=== PATIENT | male | born 1930 | race Caucasian/White ===

== ENCOUNTER 2018-07-18 06:44 | Day surgery (SDC) | payer OTHER ==
--- NOTE | 2018-07-15 11:39 | RAD REPORT ---
EXAM DESCRIPTION: RAD - Chest Pa And Lat (2 Views) - 07/15/2018 11:31 am CLINICAL HISTORY: CAD Chest pain. COMPARISON: CHEST PA AND LAT 2 VIEW dated 10/02/2008; CHEST PA AND LAT 2 VIEW dated 02/07/2008; Outpt Chest Pa/Lat (2 Views) dated 01/25/2018 FINDINGS: The lungs are hyperexpanded with linear atelectasis in both lung bases. The heart is moder ately enlarged in size with changes of previous valve replacement. No displaced fractures. Aortic ath erosclerosis. IMPRESSION: COPD suspected with linear atelectasis in both lung bases.
[2018-07-15 12:23] LABS: Absolute Lymphocytes (CBC) 1.4 K/uL (0.7-4.9); Absolute Monocytes 0.8 K/uL (0.1-1.3); Basophils % 1.3 % (0-1.3); Eosinophils % 1.9 % (0-4.4); Hematocrit 42.6 % (39.6-49.0); Lymphocytes % 21.7 % (15.3-44.8); MCH 32.7 pg (27.0-35.0); MCV 94.9 fL (80-100); MPV 9.5 fL (7.6-11.3); Monocytes % 11.9 % (3.3-12.3); RBC Red Blood Cell Count 4.49 M/uL (4.33-5.43)
[2018-07-15 12:28] LABS: Protime INR 1.11
[2018-07-15 12:37] LABS: BUN Blood Urea Nitrogen 11 mg/dL (7-18); Bicarbonate 31 mmol/L (21-32); Glucose Level 90 mg/dL (74-106); Sodium Level 141 mmol/L (136-145)
--- NOTE | 2018-07-16 08:35 | EKG ---
Test Date: 2018-07-15 Test Time: 11:21:12 Director Of Income Tax: AUBREE MEASUREMENT RESULTS: Intervals: Rate: 65 VT: 180 QRSD: 98 QT: 452 QTc: 470 Ladd: P: 64 VT: 180 QRS: -12 T: 32 INTERPRETIVE STATEMENTS: Sinus rhythm with sinus arrhythmia Nonspecific T wave abnormality Prolonged QT Abnormal ECG Compared to ECG 12/26/2017 13:00:41 Sinus bradycardia no longer present Left-axis deviation no longer present Myocardial infarct finding no longer present Electronically Signed On 07-16-18 08:35:02 CDT by Dante Thomas
[2018-07-18] MEDS ORDERED: HEPA 1000U/500MLS 2,000 UNIT/1,000 ML BAG IV ONE (06:52)
[2018-07-18] MEDS ORDERED: NA CHLORIDE 0.9% 500 ML ONE (07:22)
[2018-07-18] MEDS ORDERED: NA CHLORIDE 0.9% 100 ML IV ONE (07:27)
[2018-07-18] MEDS ORDERED: ATROPINE SULF 1 MG/10 ML SYR IV ONE (07:27)
[2018-07-18] MEDS ORDERED: LIDOCAINE 1% MPF 2 ML AMPULE ONE (07:27)
[2018-07-18] MEDS ORDERED: NA CHLORIDE 0.9% 0 ML ONE (07:27)
[2018-07-18] MEDS ORDERED: FENTANYL CITR 100 MCG/2 ML ONE (07:45)
[2018-07-18] MEDS ORDERED: MIDAZOLAM HCL 2 MG/2 ML INJ ONE (07:45)
--- NOTE | 2018-07-18 19:58 | OP ---
Surgeon: Dante Thomas MD Procedures Performed: Right and left heart catheterization, coronary angiography, left ventricular a ngiography. Findings: The patient has moderate mitral regurgitation, normal ejection fraction, normal right hear t pressures, left ventricular end-diastolic pressure 11, pulmonary capillary wedge pressure 11, and t he RV pressure was 40/6, PA pressure 40/22. Ejection fraction 65%. Coronary arteries were normal an d the recommendation is for him to have a second mitral valve repair. His mitral valve was repaired in 1997 with a French ring. 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 Prepared and draped in usual sterile fashion. Right femoral approach was use d. Right femoral artery entered using an 18-gauge needle, modified Seldinger technique, 4-Gambian she ath. Right femoral vein; 18-gauge needle, modified Seldinger technique, 7-Gambian sheath. Right hear t cath was done with a [place]-Alisha catheter. Cardiac outputs were thermodilution. The left coronary w as angiogrammed with a JL-4, right coronary with a 3DRC, LV with an angled pigtail. At the end of procedure, an angiogram was done of the right femoral artery. Adequate anatomy was seen. The phil riotomy was closed with an Angio-Seal device, femoral vein with manual pressure. Estimated Blood Loss: 10 cc. Complications: From the procedure none. System Support Analyst: Evin Carpio. ADRIEN/ANA Voice ID: [id number] Report ID: [id number]
== END 2018-07-18 12:50 | disposition home or self-care (01) ==
LOC: CCL 06:44
PROVIDERS: ATTEND Internal Medicine
PROC: 4A023N8 Measurement of Cardiac Sampling and Pressure, Bilateral, Percutaneous Approach (ICD-10-PCS; principal; 2018-07-18)
PROC: B2111ZZ Fluoroscopy of Multiple Coronary Arteries using Low Osmolar Contrast (ICD-10-PCS; 2018-07-18)
PROC: B2151ZZ Fluoroscopy of Left Heart using Low Osmolar Contrast (ICD-10-PCS; 2018-07-18)
DX: I34.0 Nonrheumatic mitral (valve) insufficiency (principal); I10 Essential (primary) hypertension; I48.91 Unspecified atrial fibrillation; G47.30 Sleep apnea, unspecified; E78.5 Hyperlipidemia, unspecified; Z88.2 Allergy status to sulfonamides; Z88.8 Allergy status to other drugs, medicaments and biological substances; Z87.891 Personal history of nicotine dependence; Z82.49 Family history of ischemic heart disease and other diseases of the circulatory system
CPT/HCPCS: 36415; 71046; 80048; 85025; 85610; 85730; 93005; 93460; C1760; J2001; J2250; J3010; C1893; J0583

== ENCOUNTER 2018-08-26 07:49 | Inpatient (IN) | payer OTHER ==
--- OUTSIDE RECORDS SUMMARY | 2018-08-26 07:52 | XMS REPORT | Clinical Summary ---
:1930 Author Organization [facility] Address [address] [place] [address] Care Team Providers Name Role Phone Laurent Avitia MD Primary Care Provider Allergies Active Allergy Reactions Severity Noted Date Comments Sulfa (Sulfonamide Antibiotics) 07/26/2018 Current Medications Prescription Sig. Disp. Refills Start Date End Date Status valsartan (DIOVAN) 320 MG Take 320 mg by Active tablet mouth daily. amlodipine-benazepril Take 1 capsule by Active (LOTREL 5-10) 5-10 mg per mouth daily. capsule furosemide (LASIX) 20 mg Take 20 mg by mouth Active tablet 2 (two) times a day. ALPRAZolam (XANAX) 0.25 Take 0.25 mg by Active MG tablet mouth nightly as needed for anxiety. famotidine (PEPCID) 10 MG Take 10 mg by mouth Active tablet 2 (two) times a day. Active Problems Problem Noted Date Mitral regurgitation 07/26/2018 Hypertension 07/26/2018 Encounters Date Type Specialty Care Team Description 07/29/2018 Hospital Procedural Cardiology Lopez Argueta Non-rheumatic mitral Silvia Krishnamurthy MD regurgitation 07/29/2018 Ancillary Orders Cardiovascular Mariangel Baxter-tu mitral GONZALES Sewell regurgitation 07/26/2018 Office Visit Cardiovascular Lopez Argueta-rheumatic cain Krishnamurthy MD regurgitation (Primary Dx) after 08/25/2017 Family History Medical History Relation Name Comments Hypertension Brother Hypertension Father Stroke Father Heart attack Mother Heart disease Mother Hypertension Mother Hypertension Sister Relation Name Status Comments Brother Father Mother Sister Social History Tobacco Use Types Packs/Day Years Used Date Former Smoker Cigarettes Comments: Quit 40+ years ago Alcohol Use Drinks/Week oz/Week Comments Yes 7-10 Glasses of wine 4.2 - 6.0 1-2 glasses of red wine per day Sex Assigned at Date Recorded Not on file Last Filed Vital Signs Vital Sign Reading Time Taken Blood Pressure 151/66 07/29/2018 2:30 PM CDT Pulse 53 07/29/2018 2:30 PM CDT Temperature - - Respiratory Rate 18 07/29/2018 2:30 PM CDT Oxygen Saturation 95% 07/26/2018 2:35 PM CDT Inhaled Oxygen Concentration - - Weight 83.9 kg (185 lb) 07/29/2018 2:30 PM CDT Height 170.2 cm (5' 7") 07/29/2018 2:30 PM CDT Body Mass Index 28.98 07/29/2018 2:30 PM CDT Plan of Treatment Health Maintenance Due Date Last Done Comments SHINGRIX VACCINE (#1) 1982 ZOSTER VACCINE 1992 PNEUMOCOCCAL POLYSACCHARIDE VACCINE AGE 65 AND OVER 1997 PNEUMOCOCCAL-13 1997 INFLUENZA VACCINE 06/22/2018 Procedures Procedure Name Priority Date/Time Associated Diagnosis Comments CARDIAC MRI VALVE STAT 07/29/2018 4:43 Non-rheumatic mitral Results for this ASSESSMENT W PM CDT regurgitation procedure are in CONTRAST the results section. POC PANEL Routine 07/29/2018 2:45 Results for this PM CDT procedure are in the results section. ESTIMATED GFR Routine 07/29/2018 2:45 Results for this PM CDT procedure are in the results section. after 08/25/2017 Results Cardiac mri valve assessment w contrast (07/29/2018 4:43 PM) Narrative Performed At [facility] CMR Report Name: LILIAN URIAS Debra :1930 Scan Date: 2018-07-29 15:05:18 Electronically signed by Matheus Ling M.D. 17:55:52 VITALS HEIGHT/WEIGHT HEIGHT:67.00 in 170.18 cm WEIGHT:184.99 lbs 83.91 kgs BSA/BP BSA:1.96 m^2 SYSTOLIC BP:151 mmHg DIASTOLIC BP:66 mmHg HEART RATE/RHYTHM BASELINE HR:53 BPM HEART RHYTHM:Frequent Ectopy SUMMARY A. STATUS POST MITRAL VALVE REPAIR WITH MILD-MODERATE MITRAL REGURGITATION. <assuming mild AI; technically difficult due to ectopy> B.MILDLY DILATED LV WITH MILD SYSTOLIC DYSFUNCTION. C. SUBENDOCARDIAL AND TRANSMURAL SCARRED SEGMENTS IN THE LCX TERRITORY. LEFT VENTRICLE: LV wall thickness is normal. LV cavity is mildly enlarged. LV systolic function is mildly decreased globally. Quantitative LVEF 46%. There is no LV mass/thrombus. VIABILITY: LV infarct/scar size is 9%. CAD pattern scar in the LCx territory consistent with a prior myocardial infarct. The LAD and RCA territories are viable. RIGHT VENTRICLE: RV wall thickness is normal. RV cavity size is normal. RV systolic function is mildly decreased globally. Quantitative RVEF 41%. There is no RV mass/thrombus. VENTRICULAR SEPTUM: The ventricular septum is intact. ATRIAL SEPTUM: There is lipomatous hypertrophy of the interatrial septum. LEFT ATRIUM: LA is severely enlarged. There is no LA mass/thrombus. RIGHT ATRIUM: RA is moderately enlarged. There is no RA mass/thrombus. PERICARDIUM: Pericardium is normal. There is no pericardial effusion. There is prominent epicardial adipose tissue. PLEURAL EFFUSION: There is no pleural effusion. AORTIC VALVE: Aortic valve is trileaflet. There is mild aortic regurgitation. Aortic regurgitant volume 20ml. There is no aortic stenosis. MITRAL VALVE: Mitral valve has a prosthetic ring. There is mild-moderate mitral regurgitation. Mitral regurgitant volume 20ml. Mitral regurgitant fraction 25%. There is an indeterminate mitral stenosis. The regurgitant jet is eccentric and swetha-medially directed. TRICUSPID VALVE: The tricuspid valve annulus is dilated. Tricuspid valve leaflets are normal. There is mild tricuspid regurgitation. There is no tricuspid stenosis. PULMONIC VALVE: Pulmonic valve leaflets are normal. Pulmonic regurgitation is present but was not (could not be) quantified. There is no pulmonic stenosis. AORTIC ROOT: The aortic root is normal in size. CHEST: The thoracic aorta is normal in caliber with no evidence of stenosis, aneurysm, coarctation, or dissection. The main PA is dilated 3.4 cm. VENOUS: Normal variant pulmonary venous anatomy (right superior, middle, and inferior veins and left superior and inferior veins) and normal drainage into the left atrium. OTHER FINDINGS: Sternotomy wires are noted. CORE EXAM MEASUREMENTS VOLUMETRIC ANALYSIS . . || | LV | Reference | RV | Reference | +------+-------+------+ +------+ + | EDV| ml|211 | |177 | | | ESV| ml|115 | |105 | | | CO | L/min | 5.47 | | 4.10 | | | MASS | g |132 | || | | SV | ml| 96 | | 72 | | | EF | % | 46 | | 41 | | '------+-------+------+ +------+ ' CARDIAC OUTPUT HR:57 BPM LV DIMENSIONS WALL THICKNESS - ANTEROSEPTAL:0.9 cm WALL THICKNESS - INFEROLATERAL:0.9 cm LV DIVINE:5.9 cm LV ESD:4.3 cm LA DIMENSIONS (LV SYSTOLE) DIAMETER:5.7 cm AREA - 2 CHAMBER:52 cm^2 LENGTH - 2 CHAMBER:7.6 cm AREA - 4 CHAMBER:45 cm^2 LENGTH - 4 CHAMBER:7.4 cm VOLUME:269 ml AORTIC ROOT DIMENSIONS ANNULUS:2.7 cm SINUS OF VALSALVA:3.8 cm SINOTUBULAR JUNCTION:3.4 cm EXTRACELLULAR VOLUME MEASUREMENT HEMATOCRIT:47 % HEMATOCRIT DATE:2018-07-29 00:00:00 17 SEGMENT . . | Segments | Wall Motion | Hyperenhancement | Stress Perfusion | Interpretation | + + + + ---+ + | Base Anterior| Mild/Mod Hypo | None ||| | Base Anteroseptal| Mild/Mod Hypo | None ||| | Base Inferoseptal| Mild/Mod Hypo | None ||| | Base Inferior| Mild/Mod Hypo | None ||| | Base Inferolateral | Mild/Mod Hypo | 51-75% || Transmural FL| | Base Anterolateral | Mild/Mod Hypo | 1-25%|| Sub-Endo [place]| | Mid Anterior | Mild/Mod Hypo | None ||| | Mid Anteroseptal | Mild/Mod Hypo | None ||| | Mid Inferoseptal | Mild/Mod Hypo | None ||| | Mid Inferior | Mild/Mod Hypo | None ||| | Mid Inferolateral| Severe Hypo | 26-50% || Sub-Endo [place]| | Mid Anterolateral| Severe Hypo | 26-50% || Sub-Endo [place]| | Apical Anterior| Mild/Mod Hypo | None ||| | Apical Septal| Mild/Mod Hypo | None ||| | Apical Inferior| Mild/Mod Hypo | None ||| | Apical Lateral | Mild/Mod Hypo | None ||| | [place] | Mild/Mod Hypo | None ||| + + + + ---+ + | RV Segments| Wall Motion | Hyperenhancement | Stress Perfusion | Interpretation | + + + + ---+ + | RV Basal Anterior| Mild/Mod Hypo | None ||| | RV Basal Inferior| Mild/Mod Hypo | None ||| | RV Mid | Mild/Mod Hypo | None ||| | RV Apical| Mild/Mod Hypo | None ||| ' + + + ---+ ' FINDINGS INFARCT/SCAR SIZE:9 % SCAN INFO GENERAL CONTRAST AGENT TYPE:Dotare[employer] LOT NUMBER:[id number] EXPIRATION DATE:2019-04-22 00:00:00 VOLUME ADMINISTERED:25 ml DOSAGE FOR 0.5M:0.15 mmol/kg SERUM CREATININE:0.6 sCr GFR:135.78 ml/min/1.73m^2 CREATININE DATE:2018-07-29 00:00:00 SEDATION SEDATION USED?:No PULSE SEQUENCE PULSE SEQUENCES:Single-Shot SSFP, IR GRE - Segmented, IR SSFP - Single Shot, Single Shot BB CARROLL, SSFP Cine, Phase Contrast Velocity Mapping, 3D MRA w and w/o contrast SETUP TYPE:Both INPATIENT:No INCOMPLETE SCAN:No REASON(S) FOR SCAN:Valve Assessment, Viability Assessment REFERRING PHYSICIAN:Lopez Argueta MD ATTENDING PHYSICIAN:Lopez Argueta MD TECHNOLOGIST:Amira White RT BILLING Patient Account [id number] CPT Codes 76639, 43191, 49955 ICD10 Codes I34.0, R93.1 ADDITIONAL NOTES AOFF 76, 59 CORRECTED PAFF 81 CORRECTED IS SAME AR DIRECT BY STJ 27 ML CORRECTED ARRF=27/59=46% LVOT 79 MR=86 - 59=27 MRRF=27/ (86- AR 27)=43% TR=PRESENT BUT NOT QUANTIFIED PAFF 81 HIGHER THAN RVSV Report generated by Pre[employer], a product of [employer] Procedure Note Interface, Radiology Results In - 07/29/2018 5:56 PM CDT Francisco Crenshaw CMR Report Name: LILIAN URIAS : 1930 Scan Date: 2018-07-29 15:05:18 Electronically signed by Matheus Ling M.D. 17:55:52 VITALS HEIGHT/WEIGHT HEIGHT: 67.00 in 170.18 cm WEIGHT: 184.99 lbs 83.91 kgs BSA/BP BSA: 1.96 m^2 SYSTOLIC BP: 151 mmHg DIASTOLIC BP: 66 mmHg HEART RATE/RHYTHM BASELINE HR: 53 BPM HEART RHYTHM: Frequent Ectopy SUMMARY A. STATUS POST MITRAL VALVE REPAIR WITH MILD-MODERATE MITRAL REGURGITATION. < assuming mild AI; technically difficult due to ectopy> B. MILDLY DILATED LV WITH MILD SYSTOLIC DYSFUNCTION. C. SUBENDOCARDIAL AND TRANSMURAL SCARRED SEGMENTS IN THE LCX TERRITORY. LEFT VENTRICLE: LV wall thickness is normal. LV cavity is mildly enlarged. LV systolic function is mildly decreased globally. Quantitative LVEF 46%. There is no LV mass/thrombus. VIABILITY: LV infarct/scar size is 9%. CAD pattern scar in the LCx territory consistent with a prior myocardial infarct. The LAD and RCA territories are viable. RIGHT VENTRICLE: RV wall thickness is normal. RV cavity size is normal. RV systolic function is mildly decreased globally. Quantitative RVEF 41%. There is no RV mass/thrombus. VENTRICULAR SEPTUM: The ventricular septum is intact. ATRIAL SEPTUM: There is lipomatous hypertrophy of the interatrial septum. LEFT ATRIUM: LA is severely enlarged. There is no LA mass/thrombus. RIGHT ATRIUM: RA is moderately enlarged. There is no RA mass/thrombus. PERICARDIUM: Pericardium is normal. There is no pericardial effusion. There is prominent epicardial adipose tissue. PLEURAL EFFUSION: There is no pleural effusion. AORTIC VALVE: Aortic valve is trileaflet. There is mild aortic regurgitation. Aortic regurgitant volume 20ml. There is no aortic stenosis. MITRAL VALVE: Mitral valve has a prosthetic ring. There is mild-moderate mitral regurgitation. Mitral regurgitant volume 20ml. Mitral regurgitant fraction 25%. There is an indeterminate mitral stenosis. The regurgitant jet is eccentric and swetha-medially directed. TRICUSPID VALVE: The tricuspid valve annulus is dilated. Tricuspid valve leaflets are normal. There is mild tricuspid regurgitation. There is no tricuspid stenosis. PULMONIC VALVE: Pulmonic valve leaflets are normal. Pulmonic regurgitation is present but was not (could not be) quantified. There is no pulmonic stenosis. AORTIC ROOT: The aortic root is normal in size. CHEST: The thoracic aorta is normal in caliber with no evidence of stenosis, aneurysm, coarctation, or dissection. The main PA is dilated 3.4 cm. VENOUS: Normal variant pulmonary venous anatomy (right superior, middle, and inferior veins and left superior and inferior veins) and normal drainage into the left atrium. OTHER FINDINGS: Sternotomy wires are noted. CORE EXAM MEASUREMENTS VOLUMETRIC ANALYSIS . . | | | LV | Reference | RV | Reference | +------+-------+------+ +------+ + | EDV | ml | 211 | | 177 | | | ESV | ml | 115 | | 105 | | | CO | L/min | 5.47 | | 4.10 | | | MASS | g | 132 | | | | | SV | ml | 96 | | 72 | | | EF | % | 46 | | 41 | | '------+-------+------+ +------+ ' CARDIAC OUTPUT HR: 57 BPM LV DIMENSIONS WALL THICKNESS - ANTEROSEPTAL: 0.9 cm WALL THICKNESS - INFEROLATERAL: 0.9 cm LV DIVINE: 5.9 cm LV ESD: 4.3 cm LA DIMENSIONS (LV SYSTOLE) DIAMETER: 5.7 cm AREA - 2 CHAMBER: 52 cm^2 LENGTH - 2 CHAMBER: 7.6 cm AREA - 4 CHAMBER: 45 cm^2 LENGTH - 4 CHAMBER: 7.4 cm VOLUME: 269 ml AORTIC ROOT DIMENSIONS ANNULUS: 2.7 cm SINUS OF VALSALVA: 3.8 cm SINOTUBULAR JUNCTION: 3.4 cm EXTRACELLULAR VOLUME MEASUREMENT HEMATOCRIT: 47 % HEMATOCRIT DATE: 2018-07-29 00:00:00 17 SEGMENT . . | Segments | Wall Motion | Hyperenhancement | Stress Perfusion | Interpretation | + + + + +--- + | Base Anterior | Mild/Mod Hypo | None | | | | Base Anteroseptal | Mild/Mod Hypo | None | | | | Base Inferoseptal | Mild/Mod Hypo | None | | | | Base Inferior | Mild/Mod Hypo | None | | | | Base Inferolateral | Mild/Mod Hypo | 51-75% | | Transmural [place] | | Base Anterolateral | Mild/Mod Hypo | 1-25% | | Sub-Endo [place] | | Mid Anterior | Mild/Mod Hypo | None | | | | Mid Anteroseptal | Mild/Mod Hypo | None | | | | Mid Inferoseptal | Mild/Mod Hypo | None | | | | Mid Inferior | Mild/Mod Hypo | None | | | | Mid Inferolateral | Severe Hypo | 26-50% | | Sub-Endo [place] | | Mid Anterolateral | Severe Hypo | 26-50% | | Sub-Endo [place] | | Apical Anterior | Mild/Mod Hypo | None | | | | Apical Septal | Mild/Mod Hypo | None | | | | Apical Inferior | Mild/Mod Hypo | None | | | | Apical Lateral | Mild/Mod Hypo | None | | | | [place] | Mild/Mod Hypo | None | | | + + + + +--- + | RV Segments | Wall Motion | Hyperenhancement | Stress Perfusion | Interpretation | + + + + +--- + | RV Basal Anterior | Mild/Mod Hypo | None | | | | RV Basal Inferior | Mild/Mod Hypo | None | | | | RV Mid | Mild/Mod Hypo | None | | | | RV Apical | Mild/Mod Hypo | None | | | ' + + + +--- ' FINDINGS INFARCT/SCAR SIZE: 9 % SCAN INFO GENERAL CONTRAST AGENT TYPE: [employer] LOT NUMBER: [id number] EXPIRATION DATE: 2019-04-22 00:00:00 VOLUME ADMINISTERED: 25 ml DOSAGE FOR 0.5M: 0.15 mmol/kg SERUM CREATININE: 0.6 sCr GFR: 135.78 ml/min/1.73m^2 CREATININE DATE: 2018-07-29 00:00:00 SEDATION SEDATION USED?: No PULSE SEQUENCE PULSE SEQUENCES: Single-Shot SSFP, IR GRE - Segmented, IR SSFP - Single Shot, Single Shot BB CARROLL, SSFP Cine, Phase Contrast Velocity Mapping, 3D MRA w and w/o contrast SETUP TYPE: Both INPATIENT: No INCOMPLETE SCAN: No REASON(S) FOR SCAN: Valve Assessment, Viability Assessment REFERRING PHYSICIAN: Lopez Argueta MD ATTENDING PHYSICIAN: Lopez Argueta MD TECHNOLOGIST: Amira White RT BILLING Patient Account [id number] CPT Codes 75566, 16933, 32402 ICD10 Codes I34.0, R93.1 ADDITIONAL NOTES AOFF 76, 59 CORRECTED PAFF 81 CORRECTED IS SAME AR DIRECT BY STJ 27 ML CORRECTED ARRF=27/59=46% LVOT 79 MR=86 - 59=27 MRRF=27/ (86- AR 27)=43% TR=PRESENT BUT NOT QUANTIFIED PAFF 81 HIGHER THAN RVSV Report generated by [employer], a product of [employer] Performing Organization Address City/State/[facility] [place] Phone Number [facility] [phone] [place] [address] Estimated GFR (07/29/2018 2:45 PM) GFR Non Af Amer >90 mL/min/1.73 m2 [facility] DEPARTMENT OF PATHOLOGY AND GENOMIC MEDICINE GFR Af Amer >90 mL/min/1.73 m2 [facility] DEPARTMENT OF Comment: PATHOLOGY AND GENOMIC Chronic kidney disease: <60 mL/min/1.73m2 MEDICINE Kidney failure: <15 mL/min/1.73m2 The estimated GFR is calculated from the IDMS-traceable Modification of Diet in Renal Disease Equation. The accuracy of the calculation is poor when the creatinine is normal. Calculated values >90 mL/min/1.73m2 are not reported. This equation has not been validated in children (<18 years), women, the elderly (>70 years), or ethnic groups other than Caucasians and Americans. Specimen Blood Performing Organization Address City/State/[facility] Phone Number [facility] DEPARTMENT OF PATHOLOGY AND [address] [place] [id number] GENOMIC MEDICINE POC panel (07/29/2018 2:45 PM) POC creatinine 0.6 (L) 0.7 - 1.2 mg/dl [facility] DEPARTMENT OF PATHOLOGY AND GENOMIC MEDICINE POC hematocrit 47 41 - 51 % [facility] DEPARTMENT OF PATHOLOGY Comment: AND GENOMIC MEDICINE Meter ID: [id number] Chili Powder Mixer: Eliseo Nj Performing Organization Address City/[facility] Phone Number [facility] DEPARTMENT OF PATHOLOGY AND [address] [place] [phone] GENOMIC MEDICINE after 08/25/2017 Insurance Payer Benefit Plan / Group Subscriber ID Type Phone Address MEDICARE MEDICARE PART A AND B xxxxxxxxxx Medicare [place], [place] AETNA AETNA PPO OPEN CHOICE xxxxx PPO Home: 119 [phone] [address]
[2018-08-26] MEDS ORDERED: ASPIRIN 81 MG CHEWABLE TABLET ONE (08:26)
[2018-08-26] MEDS ORDERED: FUROSEMIDE 40 MG/4 ML VIAL ONE (08:26)
[2018-08-26] MEDS ORDERED: METOPROLOL TARTRATE 5 MG/5 ML INJ IV ONE ×2 (08:26→08:56)
[2018-08-26] MEDS ORDERED: METOPROLOL TAR 25 MG TAB ONE ×2 (08:26→08:56)
[2018-08-26] MEDS ORDERED: FUROSEMIDE 20 MG/ 2ML VIAL ONE ×2 (08:27→09:38)
[2018-08-26 08:39] LABS: Absolute Lymphocytes (CBC) 1.5 K/uL (0.7-4.9); Absolute Monocytes 0.9 K/uL (0.1-1.3); Absolute Neutrophil 5.4 K/uL (1.8-8.0); Basophils % 1.4 % (0-1.3); Eosinophils % 1.1 % (0-4.4); Hematocrit 42.1 % (39.6-49.0); Lymphocytes % 18.9 % (15.3-44.8); MCH 33.1 pg (27.0-35.0); MCV 96.9 fL (80-100); MPV 10.7 fL (7.6-11.3); Monocytes % 11.8 % (3.3-12.3); RBC Red Blood Cell Count 4.34 M/uL (4.33-5.43)
[2018-08-26 08:51] LABS: ALT/SGPT 83 U/L (12-78); AST/SGOT 43 U/L (15-37); Albumin 3.6 g/dL (3.4-5.0); Alkaline Phosphatase 81 U/L (45-117); BUN Blood Urea Nitrogen 19 mg/dL (7-18); Bicarbonate 29 mmol/L (21-32); Bilirubin Direct 0.6 mg/dL (0-0.2); Bilirubin Total 1.1 mg/dL (0.2-1.0); Glucose Level 106 mg/dL (74-106); Magnesium 2.4 mg/dL (1.8-2.4); NT PRO-BNP 2695 pg/mL (<450); Potassium 4.6 mmol/L (3.5-5.1); Protein, Total 6.8 g/dL (6.4-8.2); Sodium Level 141 mmol/L (136-145); Troponin (Emerg Dept Use Only) < 0.02 ng/mL (0.0-0.045)
--- NOTE | 2018-08-26 08:51 | RAD REPORT ---
EXAM DESCRIPTION: Siddhartht Single View08/26/2018 8:21 am CLINICAL HISTORY: Shortness of breath COMPARISON: June 2018 FINDINGS: Questionable opacities seen behind the left side of the heart. Minimal interstitial lung opacities are present. The heart is mildly enlarged IMPRESSION: Questionable opacity behind the left side of the heart. PA and lateral chest series is r ecommended Minimal interstitial pulmonary edema is suspected
--- NOTE | 2018-08-26 09:07 | RAD REPORT ---
EXAM DESCRIPTION: USExtremity Venous Uni Ltd08/26/2018 8:58 am CLINICAL HISTORY: left leg pain and swelling. COMPARISON: None. FINDINGS: Left common femoral, superficial femoral, popliteal and posterior tibial veins are compre ssible and demonstrate augmentation. Doppler demonstrates good flow. IMPRESSION: No evidence of deep venous thrombosis involving the left lower extremity.
--- NOTE | 2018-08-26 09:46 | RAD REPORT ---
EXAM DESCRIPTION: Lori Meyer And Mark (2 Views)08/26/2018 9:25 am CLINICAL HISTORY: Shortness of breath COMPARISON: Chest x-ray earlier on the same date FINDINGS: Mild bilateral interstitial lung opacities are seen. Small pleural effusions are suspecte d. The heart is mildly enlarged. Postsurgical changes involve the chest. IMPRESSION: Mild CHF
--- NOTE | 2018-08-26 10:03 | ER ---
Nurse's Notes [facility] Name: Seferino Hernandez Age: 88 yrs Sex: Male : 1930 Arrival Date: 08/26/2018 Time: 07:53 Bed 6 Private MD: Laurent Avitia T Diagnosis: Unspecified atrial fibrillation;Pulmonary edema;Dyspnea, unspecified Presentation: 08/26 08:00 Initial Sepsis Screen: Does the patient meet any 2 criteria? HR > 90 bpm. Yes Does the sv patient have a suspected source of infection? No. Patient's initial sepsis screen is negative. Care prior to arrival: None. 08:01 Presenting complaint: Patient states: SOB x 2 days. Denies cough/fever. Transition of hb care: patient was not received from another setting of care. Onset of symptoms was August 25, 2018. Risk Assessment: Do you want to hurt yourself or someone else? Patient reports no desire to harm self or others. 08:01 Method Of Arrival: Ambulatory hb 08:01 Acuity: [place] 2 hb Historical: - Allergies: 08:02 Sulfa (Sulfonamide Antibiotics); hb - Home Meds: 08:02 amlodipine 5 mg tab 1 tab once daily [Active]; furosemide 20 mg Oral tab 1 tab once hb daily [Active]; timolol maleate 0.5 % Opht solg 1 drop once daily [Active]; valsartan 320 mg Oral tab 1 tab once daily [Active]; - PMHx: 08:02 mitral valve repair; Hypertension; hb - Immunization history:: Adult Immunizations up to date. - Social history:: Smoking status: Patient/guardian denies using tobacco. - Ebola Screening: : No symptoms or risks identified at this time. - Family history:: not pertinent. - Hospitalizations: : Patient was recently seen at. Screenin:27 Abuse screen: Denies threats or abuse. Denies injuries from another. Nutritional hb screening: No deficits noted. Tuberculosis screening: No symptoms or risk factors identified. Fall Risk Total Solorzano Fall Scale indicates No Risk (0-24 pts). Assessment: 08:30 General: Appears uncomfortable, well developed, Behavior is calm, cooperative, sv appropriate for age. Pain: Denies pain. Neuro: Level of Consciousness is awake, alert, obeys commands, Oriented to person, place, time, situation, Moves all extremities. Full function Speech short winded. Cardiovascular: Heart tones S1 S2 present Patient's skin is warm and dry. Pulses are 2+ in right dorsalis pedis artery and left dorsalis pedis artery are 3+ in right radial artery and left radial artery Rhythm is atrial fibrillation. Respiratory: Airway is patent Trachea midline Respiratory effort is even, Respiratory pattern is symmetrical, tachypnea Breath sounds are diminished bilaterally. GI: No signs and/or symptoms were reported involving the gastrointestinal system. : No signs and/or symptoms were reported regarding the genitourinary system. EENT: No signs and/or symptoms were reported regarding the EENT system. Derm: Skin is normal. Musculoskeletal: Range of motion: intact in all extremities. 08:41 Reassessment: Ultrasound at the bedside. sv 08:56 Reassessment: Patient appears in no apparent distress at this time. No changes from sv previously documented assessment. Patient and/or family updated on plan of care and expected duration. Pain level reassessed. Patient is alert, oriented x 3, equal unlabored respirations, skin warm/dry/pink. 09:35 Reassessment: Patient appears in no apparent distress at this time. No changes from sv previously documented assessment. Patient and/or family updated on plan of care and expected duration. Pain level reassessed. Patient is alert, oriented x 3, equal unlabored respirations, skin warm/dry/pink. 10:06 Reassessment: Patient appears in no apparent distress at this time. No changes from sv previously documented assessment. Patient and/or family updated on plan of care and expected duration. Pain level reassessed. Patient is alert, oriented x 3, equal unlabored respirations, skin warm/dry/pink. 10:51 Reassessment: Patient appears in no apparent distress at this time. No changes from sv previously documented assessment. Patient and/or family updated on plan of care and expected duration. Pain level reassessed. Patient is alert, oriented x 3, equal unlabored respirations, skin warm/dry/pink. 12:00 Reassessment: Patient appears in no apparent distress at this time. No changes from sv previously documented assessment. 12:16 Reassessment: Emelia MONTEJO to call back for report. sv Vital Signs: 08:01 BP 151 / 119; Pulse 132; Resp 32; Pulse Ox 95% on R/A; Pain 0/10; hb 08:40 BP 116 / 101; Pulse 113; Resp 19; Pulse Ox 99% on 2 lpm NC; sv 09:00 BP 103 / 86; Pulse 108; Resp 30; Pulse Ox 99% on 2 lpm NC; sv 09:39 BP 112 / 70; Pulse 108; Resp 26; Pulse Ox 99% on R/A; jb1 10:30 BP 116 / 93; Pulse 117; Resp 26; Pulse Ox 97% 2 lpm ; sv 10:46 Weight 86.18 kg (M); Height 5 ft. 8 in. (172.72 cm); hb 12:15 BP 102 / 80; Pulse 117; Resp 26; Pulse Ox 98% on 2 lpm NC; sv 10:46 Body Mass Index 28.89 (86.18 kg, 172.72 cm) hb ED Course: 07:53 Patient arrived in ED. sb2 07:54 Laurent Avitia MD is Private Physician. sb2 07:55 Abad Sullivan MD is Attending Physician. rn 08:01 Triage completed. hb 08:02 Arm band placed on right wrist. hb 08:05 Patient has correct armband on for positive identification. Placed in gown. Bed in low hb position. Call light in reach. Side rails up X 1. 08:05 monitor tech on. Pulse ox on. NIBP on. hb 08:15 Inserted saline lock: 20 gauge in left antecubital area, using aseptic technique. Blood hb collected. 08:16 X-ray completed. Portable x-ray completed in exam room. Patient tolerated procedure sw well. 08:18 XRAY CXR (1 view) In Process Unspecified. EDMS 08:18 EKG done, by emergency response technician. reviewed by Abad Sullivan MD. tc 08:34 Eliana Erazo, RN is Primary Nurse. sv 08:52 Extremity Venous Uni Ltd US In Process Unspecified. EDMS 09:22 X-ray completed. Patient tolerated procedure well. Patient moved back from radiology. kw 09:23 XRAY Chest Pa And Lat (2 Views) In Process Unspecified. EDMS 10:02 Ryan Hammonds DO is Hospitalizing Provider. rn 12:18 No provider procedures requiring assistance completed. Patient admitted, IV remains in sv place. intact. Administered Medications: 08:26 Drug: Aspirin Chewable Tablet 324 mg Route: PO; hb 08:41 Follow up: Response: No adverse reaction sv 08:26 Drug: Lasix 20 mg Route: IVP; Site: left antecubital; hb 08:41 Follow up: Response: No adverse reaction sv 08:26 Drug: Metoprolol 25 mg Route: PO; hb 08:40 Follow up: Response: No adverse reaction sv 08:27 Drug: Lopressor 5 mg Route: IVP; Site: left antecubital; hb 08:40 Follow up: BP 116 / 101; Pulse 113 bpm; Resp 19 bpm; Pulse Ox 99% 2 lpm Nasal Cannula; sv Response: No adverse reaction 08:56 Drug: Lopressor 5 mg Route: IVP; Site: left antecubital; sv 09:15 Follow up: Response: No adverse reaction sv 08:56 Drug: Metoprolol 25 mg Route: PO; sv 09:40 Follow up: Response: No adverse reaction sv 09:35 Drug: Lasix 20 mg Route: IVP; Site: left antecubital; ph 09:49 Follow up: Response: No adverse reaction sv 10:06 Drug: NS 0.9% 250 ml Route: IV; Rate: bolus; Site: left antecubital; sv 10:29 Follow up: Response: No adverse reaction; IV Status: Completed infusion; IV Intake: sv 250ml 10:51 Drug: Lovenox 1 mg/kg Route: Sub-Q; Site: right lower abdomen; sv 11:00 Follow up: Response: No adverse reaction sv Intake: 10:29 IV: 250ml; Total: 250ml. sv Output: 10:52 Urine: 260ml (Voided); Total: 260ml. sv Outcome: 10:02 Decision to Hospitalize by Provider. rn 12:28 Admitted to Tele accompanied by alvarez, family with patient, via stretcher, room 215, sv with oxygen, with chart, Report called to Emelia MONTEJO 12:28 Condition: stable 12:28 Instructed on the need for admit. 12:47 Patient left the ED. ph Signatures: Dispatcher [employer] EDMS Deng [email or web address] Eliana Erazo, NIKIA MONTEJO Abad Sullivan MD MD rn Whitley, Kimberlee kw Callis, Tiffany, lead warehouse associate EKG Michelle Holly RN RN Nay Romero Heather, RN RN Mary Martínez sb2 Corrections: (The following items were deleted from the chart) 11: 10:46 86.18 kg Measured; sv hb
--- NOTE | 2018-08-26 10:03 | EDPHYS ---
Physician Documentation [facility] Name: Seferino Hernandez Age: 88 yrs Sex: Male : 1930 Arrival Date: 08/26/2018 Time: 07:53 Bed 6 Private MD: Laurent Avitia T ED Physician Abad Sullivan HPI: 08/26 08:26 This 88 yrs old Male presents to ER via Ambulatory with complaints of rn Breathing Difficulty. 08:26 The patient has shortness of breath at rest. Onset: The symptoms/episode began/occurred rn yesterday. 08:29 Duration: The symptoms are continuous. The patient's shortness of breath is aggravated rn by exertion, supine position, talking, walking. Associated signs and symptoms: Pertinent positives: non-productive cough, Pertinent negatives: fever, hemoptysis, loss of consciousness, vomiting. Severity of symptoms: At their worst the symptoms were moderate in the emergency department the symptoms are unchanged. The patient has experienced a previous episode. Reports sob and non-productive cough, for 2 days, no fever, + chills, worse when supine and with exertion, + old mitral valve repair in past, had imaging last week and told valve was a little leaky but functioning ok, had neg cath recently as well. No chest pain. + palpitations. Takes lasix. . Historical: - Allergies: 08:02 Sulfa (Sulfonamide Antibiotics); hb - Home Meds: 08:02 amlodipine 5 mg tab 1 tab once daily [Active]; furosemide 20 mg Oral tab 1 tab once hb daily [Active]; timolol maleate 0.5 % Opht solg 1 drop once daily [Active]; valsartan 320 mg Oral tab 1 tab once daily [Active]; - PMHx: 08:02 mitral valve repair; Hypertension; hb - Immunization history:: Adult Immunizations up to date. - Social history:: Smoking status: Patient/guardian denies using tobacco. - Ebola Screening: : No symptoms or risks identified at this time. - Family history:: not pertinent. - Hospitalizations: : Patient was recently seen at. ROS: 08:29 Constitutional: Negative for fever, chills, and weight loss, Eyes: Negative for injury, rn pain, redness, and discharge, Neck: Negative for injury, pain, and swelling, Cardiovascular: + palpitations Respiratory: + cough and sob Abdomen/GI: Negative for abdominal pain, nausea, vomiting, diarrhea, and constipation, MS/Extremity: Negative for injury and deformity, Skin: Negative for injury, rash, and discoloration, Neuro: Negative for headache, weakness, numbness, tingling, and seizure. Exam: 08:29 Constitutional: This is a well developed, well nourished patient who is awake, alert, rn mild tachypnea Head/Face: Normocephalic, atraumatic. Eyes: Pupils equal round and reactive to light, extra-ocular motions intact. Lids and lashes normal. Conjunctiva and sclera are non-icteric and not injected. Cornea within normal limits. Periorbital areas with no swelling, redness, or edema. ENT: NO stridor Neck: Trachea midline, + JVD Cardiovascular: tachycardic, irregular Respiratory: + mild to moderate tachypnea, speaking 6 word sentences, + bibasilar crackles, no wheezing Abdomen/GI: soft, non-tender Skin: Warm, dry with normal turgor. Normal color with no rashes, no lesions, and no evidence of cellulitis. MS/ Extremity: Pulses equal, no cyanosis. Neurovascular intact. Full, normal range of motion. LLE 2cm> circumference compared to RLE, + bilateral lower ext pitting edema Neuro: Awake and alert, GCS 15, oriented to person, place, time, and situation. Cranial nerves II-XII grossly intact. Motor strength 5/5 in all extremities. Sensory grossly intact. Vital Signs: 08:01 BP 151 / 119; Pulse 132; Resp 32; Pulse Ox 95% on R/A; Pain 0/10; hb 08:40 BP 116 / 101; Pulse 113; Resp 19; Pulse Ox 99% on 2 lpm NC; sv 09:00 BP 103 / 86; Pulse 108; Resp 30; Pulse Ox 99% on 2 lpm NC; sv 09:39 BP 112 / 70; Pulse 108; Resp 26; Pulse Ox 99% on R/A; jb1 10:30 BP 116 / 93; Pulse 117; Resp 26; Pulse Ox 97% 2 lpm ; sv 10:46 Weight 86.18 kg (M); Height 5 ft. 8 in. (172.72 cm); hb 12:15 BP 102 / 80; Pulse 117; Resp 26; Pulse Ox 98% on 2 lpm NC; sv 10:46 Body Mass Index 28.89 (86.18 kg, 172.72 cm) hb MDM: 07:55 Patient medically screened. rn 08:57 Response to treatment: the patient's symptoms have mildly improved after treatment, and rn as a result, I will admit patient. 09:59 Differential diagnosis: CHF exacerbation, Chronic Obstructive Pulmonary Disease rn Myocardial Infarction pneumonia, Pneumothorax pulmonary edema, reactive airway disease. Data reviewed: vital signs, nurses notes, lab test result(s), EKG, radiologic studies, plain films, and as a result, I will admit patient. Counseling: I had a detailed discussion with the patient and/or guardian regarding: the historical points, exam findings, and any diagnostic results supporting the discharge/admit diagnosis, lab results, radiology results, the need for further work-up and treatment in the hospital. Admission orders: after a detailed discussion of the patient's condition and case, the admit orders are written by me. ED course: Pt improved, elevated BNP, enlarged heart, leaky mitral valve, pulmonary edema on CXR, will admit to Dr. Hammonds with cardiology consult, sees Dr. Thomas. . 08/26 08:06 Order name: Hepatic Function; Complete Time: 08:52 rn 08/26 08:06 Order name: Blood Culture Adult (2) rn 08/26 08:06 Order name: BMP; Complete Time: 08:52 rn 08/26 08:06 Order name: CBC with Diff; Complete Time: 08:52 rn 08/26 08:06 Order name: Magnesium; Complete Time: 08:52 rn 08/26 08:06 Order name: NT PRO-BNP; Complete Time: 08:52 rn 08/26 08:06 Order name: XRAY CXR (1 view); Complete Time: 08:52 rn 08/26 08:06 Order name: Troponin (emerg Dept Use Only); Complete Time: 08:52 rn 08/26 08:29 Order name: Extremity Venous Uni Ltd US; Complete Time: 09:49 rn 08/26 08:53 Order name: XRAY Chest Pa And Lat (2 Views); Complete Time: 09:49 rn 08/26 11:39 Order name: T4 Free; Complete Time: 11:40 EDMS 08/26 11:39 Order name: Thyroid Stimulating Hormone; Complete Time: 11:40 EDMS 08/26 08:06 Order name: EKG; Complete Time: 08:07 rn 08/26 08:06 Order name: Cardiac monitoring; Complete Time: 08: rn 08/26 08:06 Order name: EKG - Nurse/Tech; Complete Time: 08:09 rn 08/26 08:06 Order name: IV Saline Lock; Complete Time: 08:17 rn 08/26 08:06 Order name: Labs collected and sent; Complete Time: 08: rn 08/26 08:06 Order name: O2 Per Protocol; Complete Time: 08: rn 08/26 08:06 Order name: O2 Sat Monitoring; Complete Time: 08:09 rn 08/26 10:33 Order name: Diet Regular; Complete Time: 10:33 hb Administered Medications: 08:26 Drug: Aspirin Chewable Tablet 324 mg Route: PO; hb 08:41 Follow up: Response: No adverse reaction sv 08:26 Drug: Lasix 20 mg Route: IVP; Site: left antecubital; hb 08:41 Follow up: Response: No adverse reaction sv 08:26 Drug: Metoprolol 25 mg Route: PO; hb 08:40 Follow up: Response: No adverse reaction sv 08:27 Drug: Lopressor 5 mg Route: IVP; Site: left antecubital; hb 08:40 Follow up: BP 116 / 101; Pulse 113 bpm; Resp 19 bpm; Pulse Ox 99% 2 lpm Nasal Cannula; sv Response: No adverse reaction 08:56 Drug: Lopressor 5 mg Route: IVP; Site: left antecubital; sv 09:15 Follow up: Response: No adverse reaction sv 08:56 Drug: Metoprolol 25 mg Route: PO; sv 09:40 Follow up: Response: No adverse reaction sv 09:35 Drug: Lasix 20 mg Route: IVP; Site: left antecubital; ph 09:49 Follow up: Response: No adverse reaction sv 10:06 Drug: NS 0.9% 250 ml Route: IV; Rate: bolus; Site: left antecubital; sv 10:29 Follow up: Response: No adverse reaction; IV Status: Completed infusion; IV Intake: sv 250ml 10:51 Drug: Lovenox 1 mg/kg Route: Sub-Q; Site: right lower abdomen; sv 11:00 Follow up: Response: No adverse reaction sv Disposition: 08/26/18 10:02 Hospitalization ordered by Ryan Hammonds for Inpatient Admission. Preliminary diagnosis are Unspecified atrial fibrillation, Pulmonary edema, Dyspnea, unspecified. - Bed requested for Telemetry/MedSurg (Inpatient). - Status is Inpatient Admission. ph - Condition is Stable. - Problem is new. - Symptoms have improved. UTI on Admission? No Signatures: Dispatcher [employer] EDMS Eliana Erazo RN NIKIA Abad Sullivan MD MD rn Hall, Patricia, RN RN Amada Barrow RN NIKIA Alayna Vazquez RN RN Florinda Harrington Corrections: (The following items were deleted from the chart) 11:28 10:02 Hospitalization Ordered by Ryan Hammonds DO for Inpatient Admission. Preliminary eb diagnosis is Unspecified atrial fibrillation; Pulmonary edema; Dyspnea, unspecified. Bed requested for Telemetry/MedSurg (Inpatient). Status is Inpatient Admission. Condition is Stable. Problem is new. Symptoms have improved. UTI on Admission? No. rn 12:04 11:28 08/26/2018 10:02 Hospitalization Ordered by Ryan Hammonds DO for Inpatient df Admission. Preliminary diagnosis is Unspecified atrial fibrillation; Pulmonary edema; Dyspnea, unspecified. Bed requested for Telemetry/MedSurg (Inpatient). Status is Inpatient Admission. Condition is Stable. Problem is new. Symptoms have improved. UTI on Admission? No. eb 12:47 12:04 08/26/2018 10:02 Hospitalization Ordered by Ryan Hammonds DO for Inpatient ph Admission. Preliminary diagnosis is Unspecified atrial fibrillation; Pulmonary edema; Dyspnea, unspecified. Bed requested for Telemetry/MedSurg (Inpatient). Status is Inpatient Admission. Condition is Stable. Problem is new. Symptoms have improved. UTI on Admission? No. df
[2018-08-26] MEDS ORDERED: NA CHLORIDE 0.9% 250 ML ONE (10:08)
[2018-08-26] MEDS ORDERED: ACETAMINOPHEN 500 MG TAB PO PRN (10:37)
[2018-08-26] MEDS ORDERED: ONDANSETRON 4 MG/2 ML VIAL IV PRN (10:37)
[2018-08-26] MEDS ORDERED: ENOXAPARIN 100 MG/ML SYR SQ ONE (10:54)
[2018-08-26 11:39] LABS: Thyroid Stimulating Hormone 2.34 uIU/mL (0.360-3.740)
--- NOTE | 2018-08-26 11:57 | P.HP ---
Certification for Inpatient Patient admitted to: Inpatient With expected LOS: >2 Midnights Patient will require the following post-hospital care: None Practitioner: I am a practitioner with admitting privileges, knowledge of patient current condition, hospital course, and medical plan of care. Services: Services provided to patient in accordance with Admission requirements found in Title 42 Section 412.3 of the Code of Federal Regulations Patient History Date of Service: 08/26/18 Primary Care Provider: Dr. Avitia; Cardiology-Dr. Thomas Reason for admission: Shortness of breath History of Present Illness: 88-year-old male presented to emergency room with shortness of breath. Patient with history of diastolic CHF, hypertension, glaucoma, obstructive sleep apnea and mitral valve repair in the distant past. Patient had increasing shortness of breath over the past week. He were also reported some palpitations and edema to the lower extremity. Patient reports seen by cardiovascular surgery about 2 weeks ago at [facility]. He was re-evaluated for his mitral valve. No intervention is required. In the emergency room patient found to be with new onset atrial fibrillation, rate around 130. White count 8.0. Hemoglobin 14. Sodium 141, potassium 4.6, BUN of 19, creatinine 1.0 with a GFR 61. Glucose 106. Venous Doppler of the left lower extremity showed no DVT. Chest x-ray shows CHF pattern. Total bilirubin 1.1, direct bilirubin 0.6. AST 43, ALT 83. Troponin less than 0.02 with a BNP of 2695. Patient was given metoprolol 5 mg IV x2 along with metoprolol 50 mg. Rate has improved. Blood pressure stable. Patient admitted for further evaluation. When I saw the patient ER, his [id number] was at bedside. Patient denied any chest pain. No nausea, vomiting, diarrhea or constipation noted. Allergies Sulfa (Sulfonamide Antibiotics) Allergy (Verified 07/15/18 11:10) Unknown Home medications list reviewed: Yes Home Medications: ALPRAZolam [Xanax] 0.25 mg PO BEDTIME PRN 01/25/18 Amlodipine Besylate [Norvasc] 5 mg PO [id number] 01/25/18 Doxylamine Succinate [Sleep Aid] 12.5 mg PO BEDTIME 01/25/18 Furosemide [Lasix] 20 mg PO DAILY 01/25/18 Latanoprost Ophth [Xalatan 0.005%*] 1 gtt EACH EYE BID 01/25/18 Timolol 0.5% Opth [Timoptic 0.5% Opth*] 1 gtt EACH EYE BID 01/25/18 Valsartan [Diovan] 320 mg PO [id number] 01/25/18 - Past Medical/Surgical History Diabetic: No -: Hypertension -: Diastolic CHF -: History of Mitral valve repair -: Obstructive sleep apnea -: Glaucoma -: Former tobacco use -: Mitral valve 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 He has 6 children. He is retired. - Family History Mother -: Heart disease Father -: Stroke Brother -: Heart disease, Hypertension - Social History Smoking Status: Former smoker Alcohol use: Yes CD- Drugs: No Caffeine use: Yes Place of Residence: Home Review of Systems General: Weakness, As per HPI Eyes: Unremarkable ENT: Unremarkable Respiratory: Shortness of Breath, As per HPI Cardiovascular: Palpitations, Paroxysmal Noc. Dyspnea, Edema, As per HPI Gastrointestinal: Unremarkable Genitourinary: Unremarkable Musculoskeletal: Pedal edema, As per HPI Integumentary: As per HPI Neurological: As per HPI Lymphatics: Unremarkable Physical Examination - Physical Exam General: Alert, In no apparent distress, Oriented x3, Cooperative HEENT: Atraumatic, Normocephalic, PERRLA, Mucous membr. moist/pink Neck: Supple, No Thyromegaly Respiratory: Crackles/rales (Crackles to the bases) Cardiovascular: Irregular heart rate/rhythm (Atrial fibrillation rate around 100 -110) Gastrointestinal: Normal bowel sounds, Soft and benign, Non-distended, No tenderness, No masses, No rebound, No guarding Musculoskeletal: No contractures, No erythema, No tenderness, No warmth Integumentary: No erythema, No warmth, No cyanosis, Tenderness/swelling ( Nonpitting edema to the lower extremity bilateral) Neurological: Normal speech, Normal strength at 5/5 x4 extr, Normal tone, Normal affect - Studies Laboratory Data (last 24 hrs) 08/26/18 08:15: WBC 8.0, Hgb 14.4, Hct 42.1, Plt Count 256 08/26/18 08:15: Sodium 141, Potassium 4.6, BUN 19 H, Creatinine 1.00, Glucose 106, Magnesium 2.4, Total Bilirubin 1.1 H, AST 43 H, ALT 83 H, Alkaline Phosphatase 81 Assessment and Plan - Plan Impression: Shortness of breath and palpitations secondary to new onset atrial fibrillation with RVR and acute on chronic diastolic CHF Hypertension History of mitral valve repair Obstructive sleep apnea Plan: Shortness of breath, edema to the lower extremities and palpitations secondary to new onset atrial fibrillation with RVR and acute on chronic diastolic CHF: Patient given treatment in the emergency room. Case discussed with cardiology. Patient will be monitored on telemetry. Will check echocardiogram. Will place on a 1500 cc per day fluid restriction and low-salt diet. Will continue with metoprolol 25 mg 1 pill twice daily for rate control. Will start Lovenox at 1 milligram/kilogram subcu twice daily. Further adjustment may be required. Patient will likely require chronic anti coagulation at discharge. Will continue to monitor closely. Will maintain sats above 90%. Will recheck chest x-ray in the morning. Will wean off oxygen. Await further recommendations from cardiology. Hypertension: Will discontinue Norvasc. Patient on metoprolol. Will monitor and adjust appropriately. History of mitral valve repair: Patient seen about 2 weeks ago by cardiovascular surgery at [facility]. Patient does not require surgical intervention as per patient. Will recheck echocardiogram. Obstructive sleep apnea: This has been addressed in the past. Patient not on CPAP at this time has sleep apnea is mild. Advanced directives address in detail. Patient is DNR. Patient understands this. He will provide written information. Discharge Plan: Home Plan to discharge in: 48 Hours - Advance Directives Does patient have a Living Will: Yes Does patient have a Durable POA for Healthcare: Yes - Code Status/Comfort Care Code Status Assessed: Yes (Patient is DNR) Time Spent Managing Pts Care (In Minutes): 55
[2018-08-26 14:42] VITALS: BMI 27.3
[2018-08-26 14:51] LABS: CKMB Creatine Kinase MB 1.1 ng/mL (0.3-3.6); Creatine Phosphokinase 35 U/L (39-308); Troponin I < 0.02 ng/mL (0.0-0.045)
--- NOTE | 2018-08-26 15:12 | RAD REPORT ---
EXAM DESCRIPTION: US - Liver Only - 08/26/2018 2:59 pm CLINICAL HISTORY: elevated liver fxn, CHF COMPARISON: No comparisons FINDINGS: The liver is normal in size, shape and echotexture.No focal liver lesion or intrahepatic b iliary dilatation.No evidence of portal vein thrombosis. The spleen is normal in size measuring 10.8 cm. IMPRESSION: Normal examination.
[2018-08-26] MEDS: METOPROLOL TAR 25 MG TAB PO SCH (17:17)
[2018-08-26] MEDS: FUROSEMIDE 20 MG/ 2ML VIAL IV SCH (17:18)
[2018-08-26] MEDS: ENOXAPARIN 100 MG/ML SYR SQ SCH (20:27)
[2018-08-26 23:13] LABS: CKMB Creatine Kinase MB 1.3 ng/mL (0.3-3.6); Creatine Phosphokinase 40 U/L (39-308); Troponin I < 0.02 ng/mL (0.0-0.045)
[2018-08-27] MEDS ORDERED: FUROSEMIDE 40 MG/4 ML VIAL IV ONE (00:40)
[2018-08-27] MEDS ORDERED: FUROSEMIDE 40 MG/4 ML VIAL ONE (00:47)
[2018-08-27 04:41] LABS: Urine Appearance CLEAR; Urine Bilirubin NEGATIVE (NEG); Urine Blood NEGATIVE (NEG); Urine Color YELLOW; Urine Glucose NEGATIVE (NEG); Urine Protein NEGATIVE (NEG); Urine Urobilinogen 0.2 mg/dL (0.2-1.0)
[2018-08-27 04:43] LABS: Absolute Lymphocytes (CBC) 1.1 K/uL (0.7-4.9); Absolute Monocytes 0.9 K/uL (0.1-1.3); Basophils % 0.8 % (0-1.3); Eosinophils % 0.7 % (0-4.4); Hematocrit 37.9 % (39.6-49.0); Lymphocytes % 13.2 % (15.3-44.8); MCH 33.3 pg (27.0-35.0); MCV 96.2 fL (80-100); MPV 10.5 fL (7.6-11.3); Monocytes % 11.2 % (3.3-12.3); RBC Red Blood Cell Count 3.94 M/uL (4.33-5.43)
[2018-08-27 04:46] LABS: Urine Microscopic Reflex NO UMIC
[2018-08-27 05:05] LABS: Albumin 3.1 g/dL (3.4-5.0); Bilirubin Total 0.8 mg/dL (0.2-1.0); Magnesium 1.9 mg/dL (1.8-2.4); Potassium 3.8 mmol/L (3.5-5.1); Protein, Total 5.9 g/dL (6.4-8.2)
[2018-08-27] MEDS: METOPROLOL TAR 25 MG TAB PO SCH (05:26)
[2018-08-27] MEDS: PANTOPRAZOLE 40MG TABLET PO SCH (05:26)
[2018-08-27] MEDS ORDERED: POTASSIUM CL SA 10 MEQ TAB PO ONE (05:36)
--- NOTE | 2018-08-27 07:53 | EKG ---
Test Date: 2018-08-26 Test Time: 08:00:06 [employer] Merchandiser: LESLIE MEASUREMENT RESULTS: Intervals: Rate: 125 KS: QRSD: 94 QT: 332 QTc: 479 Edwards: P: KS: QRS: -4 T: 66 INTERPRETIVE STATEMENTS: Atrial fibrillation with rapid ventricular response with premature ventricular or aberrantly conducted complexes Possible Anterior infarct, age undetermined Abnormal ECG Compared to ECG 07/15/2018 11:21:12 Ventricular premature complex(es) now present Myocardial infarct finding now present Sinus rhythm no longer present Sinus arrhythmia no longer present T-wave abnormality no longer present Prolonged QT interval no longer present Electronically Signed On 08-27-18 07:49:08 CDT by Michael Estrada
--- NOTE | 2018-08-27 08:03 | CON ---
Date of Consultation: 08/26/2018 Reason For Consultation: Atrial fibrillation and shortness of breath. History Of Present Illness: Mr. Hernandez is an 88-year-old male. He is a patient of Dr. Thomas. In June 2018, underwent a heart catheterization showing normal coronary arteries, normal right heart p ressures. He was recommended to have a second mitral valve repair. He had had a French ring mitral v alve repair in 1997, 20 years ago. This has not been planned or done yet. He came in with shortness of breath, was found to have atrial fibrillation. This seems to be new, although I am surprised torrey t he has not had that before considering his mitral valve history. He also has a history of hyperten westley and anxiety. Denied any chest pain, nausea, vomiting, diaphoresis, PND, orthopnea, pedal edema, or syncope. He actually denied any palpitations. Allergies: HE IS ALLERGIC TO SULFA. Review of Systems: Negative. Social History: Positive for being a DNR. Family History: Noncontributory. Medications: Include valsartan, Lasix, Norvasc, and Xanax. Physical Examination: Vital Signs: He is in atrial fibrillation, rate at 92. No symptoms. HEENT: Negative. Neck: Supple without any lymphadenopathy, JVD, or thyromegaly. Chest: Reveals some rales at the bases. Cardiac Exam: Revealed irregularly irregular rhythm and rate without any gallops or rubs. Has a elizabeth ral regurgitation murmur. Abdomen: Benign. Extremities: 1+ edema. Diagnostic Data: EKG showed atrial fibrillation, rate of 92. BNP was 2695. His troponin is negativ e. His chest x-ray showed mild CHF. Impression And Plan: 1.Mild congestive heart failure exacerbation. This is secondary to mitral regurgitation. He has a normal ejection fraction. This is an acute exacerbation of chronic diastolic congestive heart failur e. 2.Anxiety. 3.Hypertension. The patient has been recommended another mitral valve repair. We will discuss the case further with him and the family and Dr. Thomas and see what the future plans are. Regarding his atrial fibrillation, I would recommend a low-dose beta-mal, taking him off the valsartan or the Norvasc. He would be good with an MARGA inhibitor and a beta-mal instead of a calcium channel bloc ker. We should probably start some form of anticoagulation, but I will discuss the case further with Dr. Thomas prior to doing so. If he is interested in pursuing that valve, we should probably wait u ntil the valve is done. He can go home whenever it is okay with Dr. Hammonds. KEVIN/ANA Voice ID: [id number] Report ID: [id number]
[2018-08-27] MEDS: ENOXAPARIN 100 MG/ML SYR SQ SCH (08:50)
[2018-08-27] MEDS: FUROSEMIDE 20 MG/ 2ML VIAL IV SCH ×2 (08:55→16:34)
[2018-08-27] MEDS ORDERED: ALPRAZOLAM 0.25 MG TABLET PO PRN (09:29)
--- NOTE | 2018-08-27 09:33 | RAD REPORT ---
EXAM DESCRIPTION: RADJonaht Pa And Lat (2 Views)08/27/2018 6:35 am CLINICAL HISTORY: Cough COMPARISON: 08/26/2018 FINDINGS: Mild bilateral pulmonary opacities are partially resolved. No other change is noted IMPRESSION: Partial resolution in mild CHF
--- NOTE | 2018-08-27 09:36 | P.PN ---
Subjective Date of Service: 08/27/18 Primary Care Provider: Dr. Avitia; Cardiology-Dr. Thomas Chief Complaint: Shortness of breath Subjective: Other (Patient doing better. Patient had episode of shortness of breath last night. Patient received extra dose of Lasix.) Physical Examination - Vital Signs Temperature: 97 F Blood Pressure: 148/104 Pulse: 127 Respirations: 18 Pulse Ox (%): 99 - Physical Exam General: Alert, In no apparent distress, Oriented x3, Cooperative HEENT: Atraumatic Neck: Supple Respiratory: Crackles/rales (Crackles to the bases) Cardiovascular: Irregular heart rate/rhythm (Atrial fibrillation rate slightly elevated) Gastrointestinal: Normal bowel sounds, Soft and benign, Non-distended, No tenderness, No masses, No rebound, No guarding Musculoskeletal: No erythema, No tenderness, No warmth Integumentary: No tenderness/swelling, No erythema, No warmth, No cyanosis Neurological: Normal speech, Normal strength at 5/5 x4 extr, Normal tone, Normal affect - Studies Medications List Reviewed: Yes Assessment & Plan Discharge Plan: Home Plan to discharge in: 48 Hours Physician Review Additional Text: Impression: Shortness of breath and palpitations secondary to new onset atrial fibrillation with RVR and acute on chronic diastolic CHF Mitral valve regurgitation with history of distant mitral valve repair Hypertension Obstructive sleep apnea Elevated liver function Plan: Shortness of breath, edema to the lower extremities and palpitations secondary to new onset atrial fibrillation with RVR and acute on chronic diastolic CHF: Patient stable at this time. Heart rate improved. Patient on metoprolol 25 mg 1 pill twice daily. Patient also on Lovenox 1 milligram/kilograms subcu twice daily. Anticipate oral chronic anti coagulation at discharge. Cardiology reports the patient had normal coronaries with heart catheterization done June 2018. He had mitral regurgitation at that time. He was to sent to see cardiovascular surgery for mitral valve repair. He reports that CV surgical intervention was not required when he went to see CV surgery weeks ago. Await echocardiogram results done yesterday. Will discuss with cardiology about plan of care. Patient still mildly short of breath. Patient received extra dose of Lasix last night. Will continue with diuresis and Lasix. Recheck chest x-ray today. Anticipate discharge in the next 24-48 hr once more improved. Hypertension: Patient on metoprolol. Norvasc and Arb inhibitor had been discontinued. Will continue to monitor and adjust medication. Will consider restarting Arb inhibitor if blood pressure increases. Mitral valve regurgitation with history of distant mitral valve repair: Patient seen about 2 weeks ago by cardiovascular surgery at [facility] outpatient cardiovascular clinic. Patient does not require surgical intervention as per patient. Will recheck echocardiogram. Obstructive sleep apnea: This has been addressed in the past. Patient not on CPAP at this time has sleep apnea is mild. Elevated liver function: Now within normal range. Liver ultrasound negative. Likely from CHF congestion. Time Spent Managing Pts Care (In Minutes): 55
[2018-08-27 14:06] LABS: Protime INR 1.3
[2018-08-27] MEDS: WARFARIN SODIUM 5 MG TAB PO SCH (16:34)
[2018-08-27] MEDS ORDERED: DIGOXIN 0.25 MG/ML AMP IV ONE (16:42)
[2018-08-27] MEDS ORDERED: WARFARIN SODIUM 5 MG TAB PO SCH (17:00)
[2018-08-27] MEDS: METOPROLOL TAR 50 MG TAB PO SCH (18:13)
[2018-08-27] MEDS ORDERED: ENOXAPARIN 100 MG/ML SYR SQ SCH (21:00)
[2018-08-27] MEDS: ENOXAPARIN 80 MG/0.8 ML SQ SCH (21:29)
[2018-08-28] MEDS: METOPROLOL TAR 50 MG TAB PO SCH ×2 (05:11→17:49)
[2018-08-28] MEDS: PANTOPRAZOLE 40MG TABLET PO SCH (05:12)
[2018-08-28 05:26] LABS: Absolute Lymphocytes (CBC) 1.1 K/uL (0.7-4.9); Absolute Monocytes 0.7 K/uL (0.1-1.3); Absolute Neutrophil 4.9 K/uL (1.8-8.0); Basophils % 0.9 % (0-1.3); Eosinophils % 1.5 % (0-4.4); Hematocrit 36.7 % (39.6-49.0); Lymphocytes % 16.5 % (15.3-44.8); MCV 96.2 fL (80-100); MPV 10.6 fL (7.6-11.3); Monocytes % 10.6 % (3.3-12.3); RBC Red Blood Cell Count 3.82 M/uL (4.33-5.43)
[2018-08-28 05:59] LABS: Bilirubin Total 0.9 mg/dL (0.2-1.0); Protein, Total 5.9 g/dL (6.4-8.2)
[2018-08-28 06:18] LABS: Protime INR 1.29
--- NOTE | 2018-08-28 08:23 | P.PN ---
Subjective Date of Service: 08/28/18 Primary Care Provider: Dr. Avitia; Cardiology-Dr. Thomas Chief Complaint: Shortness of breath Subjective: Other (Patient continues to improve. Short of breath improved.) Physical Examination - Vital Signs Temperature: 97.4 F Blood Pressure: 110/78 Pulse: 125 Respirations: 20 Pulse Ox (%): 93 - Physical Exam General: Alert, In no apparent distress, Oriented x3, Cooperative HEENT: Atraumatic Neck: Supple Respiratory: Crackles/rales (Mild crackles but significantly improved. Better air improvement) Cardiovascular: Irregular heart rate/rhythm (Atrial fibrillation rate around 100 -120) Gastrointestinal: Normal bowel sounds, Soft and benign, Non-distended, No tenderness, No masses, No rebound, No guarding Musculoskeletal: No erythema, No tenderness, No warmth Integumentary: No tenderness/swelling, No erythema, No warmth, No cyanosis Neurological: Normal speech, Normal strength at 5/5 x4 extr, Normal tone, Normal affect - Studies Medications List Reviewed: Yes Assessment & Plan Discharge Plan: Home Plan to discharge in: 24 Hours Physician Review Additional Text: Impression: Shortness of breath and palpitations secondary to new onset valvular atrial fibrillation with RVR and acute on chronic systolic CHF Mitral valve regurgitation with history of distant mitral valve repair Hypertension Obstructive sleep apnea Elevated liver function GERD Plan: Shortness of breath, edema to the lower extremities and palpitations secondary to new onset valvular atrial fibrillation with RVR and acute on chronic systolic CHF: Patient continues to improve. Patient still in atrial fibrillation. Patient continues with metoprolol 50 mg 1 pill twice daily. Patient on Lovenox at 1 milligram/kilogram subcu twice daily. Coumadin started yesterday after discussion with cardiology. Patient with valvular new onset atrial fibrillation. Lovenox will be discontinued once INR above 2.0. Will continue monitor INR. Cardiology recommends mitral valve repair. Patient will need a follow up with CV surgery as an outpatient. Recent heart catheterization done June 2018 shows normal coronaries. Recent echocardiogram shows ejection fraction around 35% as per Cardiology. Will adjust IV Lasix to oral. Continue with 1500 cc per day fluid restriction. Will have physical therapy ambulate patient. Patient desires home health and physical therapy at discharge. Will consult psych social worker to help in this process. Anticipate discharge tomorrow with home health and physical therapy set up. Will discuss further with cardiology for plan of care prior to discharge tomorrow. Patient will need to follow up with his PCP or cardiology as an outpatient for INR checks. Will have this arranged with home health. Education on Coumadin address in detail. Hypertension: Patient now on on metoprolol. Norvasc and Arb inhibitor had been discontinued. Will continue to monitor and adjust medication. Will consider restarting Arb inhibitor if blood pressure increases. Mitral valve regurgitation with history of distant mitral valve repair: Patient seen about 2 weeks ago by cardiovascular surgery at [facility] outpatient cardiovascular clinic. Patient does not require surgical intervention as per patient. Recheck echo shows ejection fraction around 35%. Cardiology reports that the patient may require mitral valve repair. Cardiology to discuss with CV surgery. Continue as above. Obstructive sleep apnea: This has been addressed in the past. Patient not on CPAP at this time has sleep apnea is mild. Elevated liver function: Now within normal range. Liver ultrasound negative. Likely from CHF congestion. GERD: Will continue with Protonix 40 mg daily. Time Spent Managing Pts Care (In Minutes): 55
[2018-08-28] MEDS: ENOXAPARIN 80 MG/0.8 ML SQ SCH ×2 (09:48→22:03)
[2018-08-28] MEDS: FUROSEMIDE 40 MG TABLET PO SCH ×2 (09:48→17:49)
[2018-08-28] MEDS: WARFARIN SODIUM 5 MG TAB PO SCH (17:49)
[2018-08-29 05:15] LABS: Absolute Lymphocytes (CBC) 1.3 K/uL (0.7-4.9); Absolute Monocytes 0.8 K/uL (0.1-1.3); Absolute Neutrophil 3.6 K/uL (1.8-8.0); Eosinophils % 1.6 % (0-4.4); Hematocrit 37.7 % (39.6-49.0); Lymphocytes % 22.4 % (15.3-44.8); MCH 32.8 pg (27.0-35.0); MCV 96.7 fL (80-100); MPV 10.6 fL (7.6-11.3); Monocytes % 13.2 % (3.3-12.3)
[2018-08-29] MEDS: METOPROLOL TAR 50 MG TAB PO SCH (05:19)
[2018-08-29] MEDS: PANTOPRAZOLE 40MG TABLET PO SCH (05:19)
[2018-08-29 05:40] LABS: ALT/SGPT 58 U/L (12-78); AST/SGOT 26 U/L (15-37); Albumin 2.9 g/dL (3.4-5.0); Alkaline Phosphatase 67 U/L (45-117); BUN Blood Urea Nitrogen 12 mg/dL (7-18); Bicarbonate 29 mmol/L (21-32); Bilirubin Total 0.7 mg/dL (0.2-1.0); Glucose Level 85 mg/dL (74-106); Magnesium 1.9 mg/dL (1.8-2.4); Potassium 3.5 mmol/L (3.5-5.1); Protein, Total 5.7 g/dL (6.4-8.2); Sodium Level 141 mmol/L (136-145)
[2018-08-29 05:50] LABS: Protime INR 1.36
[2018-08-29] MEDS ORDERED: POTASSIUM CL SA 10 MEQ TAB PO ONE (06:30)
--- NOTE | 2018-08-29 08:17 | ECHO ---
HEIGHT: 5 ft 8 in WEIGHT: 179 lb 14.4 oz DATE OF STUDY: 08/26/[address]: 2-DIMENSIONAL: YES M.MODE: YES DOPPLER: YES COLOR FLOW: YES TDS: NO PORTABLE: NO DEFINITY: NO BUBBLE STUDY: NO DIAGNOSIS: CONGESTIVE HEART FAILURE CARDIAC HISTORY: CATHERIZATION: NO SURGERY: YES PROSTHETIC VALVE: MITRAL VALVE REPLACEMENT PACEMAKER: NO MEASUREMENTS (cm) DIASTOLIC (NORMALS) SYSTOLIC (NORMALS) IVSd 1.1 (0.6-1.2) LA Diam 6.2 (1.9-4.0) LVEF 35-40% LVIDd 4.8 (3.5-5.7) LVIDs 3.8 (2.0-3.5) %FS % LVPWd 1.3 (0.6-1.2) Ao Diam 3.2 (2.0-3.7) 2 DIMENSIONAL ASSESSMENT: RIGHT ATRIUM: NORMAL LEFT ATRIUM: DILATED RIGHT VENTRICLE: NORMAL LEFT VENTRICLE: NORMAL SIZE AND FUNCTION TRICUSPID VALVE: NORMAL MITRAL VALVE: MITRAL ANNULAR CALCIFICATION PULMONIC VALVE: NORMAL AORTIC VALVE: SCLEROSIS PERICARDIAL EFFUSION: NONE AORTIC ROOT: NORMAL LEFT VENTRICULAR WALL MOTION: MODERATE GLOBAL HYPOKINESIS. DOPPLER/COLOR FLOW: MODERATE- SEVERE MITRAL REGURGITATION. MILD TRICUSPID REGURGITATION. RIGHT VENTRICULAR SYSTOLIC PRESSURE 50 MMHG. COMMENTS: MODERATE GLOBAL HYPOKINESIS- EJECTION FRACTION 35-40%. MODERATED TO SEVERE MITRAL REGURGITATION. MILD TRICUSPID REGURGITATION. MITRAL ANNULAR CALCIFICATION. LEFT ATRIAL ENLARGEMENT. MODERATE PULMONARY HYPERTENSION. RIGHT VENTRICULAR SYSTOLIC PRESSURE 50 MMHG. TECHNOLOGIST: WANDA ECKERT [facility]
--- NOTE | 2018-08-29 09:33 | P.PN ---
Subjective Date of Service: 08/29/18 Primary Care Provider: Dr. Avitia; Cardiology-Dr. Thomas Chief Complaint: Shortness of breath Subjective: Doing well (Less short of breath. No chest pain) Physical Examination - Vital Signs Temperature: 97 F Blood Pressure: 106/70 Pulse: 105 Respirations: 18 Pulse Ox (%): 93 - Physical Exam General: Alert, In no apparent distress, Oriented x3, Cooperative HEENT: Atraumatic Neck: Supple Respiratory: Clear to auscultation bilaterally, Normal air movement Cardiovascular: Irregular heart rate/rhythm (a fib rate better) Gastrointestinal: Normal bowel sounds, Soft and benign, Non-distended, No tenderness, No masses, No rebound, No guarding Musculoskeletal: No erythema, No tenderness, No warmth Integumentary: No tenderness/swelling, No erythema, No warmth, No cyanosis Neurological: Normal speech, Normal tone, Normal affect - Studies Medications List Reviewed: Yes Assessment & Plan Discharge Plan: Home Plan to discharge in: 24 Hours Physician Review Additional Text: Impression: Shortness of breath and palpitations secondary to new onset valvular atrial fibrillation with RVR and acute on chronic systolic CHF Mitral valve regurgitation with history of distant mitral valve repair Hypertension Obstructive sleep apnea Elevated liver function GERD Plan: Shortness of breath, edema to the lower extremities and palpitations secondary to new onset valvular atrial fibrillation with RVR and acute on chronic systolic CHF: Patient continues to improve. Patient still in atrial fibrillation but better rate control. Continue with metoprolol 50 mg 1 pill twice daily. Patient on Lovenox at 1 milligram/kilogram subcu twice daily. Coumadin started yesterday after discussion with cardiology. Patient with valvular new onset atrial fibrillation. Lovenox will be discontinued once INR above 2.0. Will continue monitor INR. Cardiology recommends mitral valve repair. Patient will need a follow up with CV surgery as an outpatient. Recent heart catheterization done June 2018 shows normal coronaries. Recent echocardiogram shows ejection fraction around 35% as per Cardiology. Patient now on oral Lasix. Will continue with 1500 cc per day fluid restriction. Possible discharge today if okay with cardiology. Patient will need INR checks daily until INR therapeutic. Social work to arrange home health. Hypertension: Patient now on on metoprolol. Norvasc and Arb inhibitor had been discontinued. Will continue to monitor and adjust medication. Will consider restarting Arb inhibitor if blood pressure increases. Mitral valve regurgitation with history of distant mitral valve repair: Patient seen about 2 weeks ago by cardiovascular surgery at [facility] outpatient cardiovascular clinic. Patient does not require surgical intervention as per patient. Recheck echo shows ejection fraction around 35%. Cardiology reports that the patient may require mitral valve repair. Cardiology to discuss with CV surgery. Continue as above. Obstructive sleep apnea: This has been addressed in the past. Patient not on CPAP at this time has sleep apnea is mild. Elevated liver function: Now within normal range. Liver ultrasound negative. Likely from CHF congestion. GERD: Will continue with Protonix 40 mg daily. Time Spent Managing Pts Care (In Minutes): 55
[2018-08-29] MEDS: ENOXAPARIN 80 MG/0.8 ML SQ SCH (09:43)
[2018-08-29] MEDS: FUROSEMIDE 40 MG TABLET PO SCH (09:43)
--- NOTE | 2018-08-29 13:04 | P.DS ---
Admission Date: 08/26/18 Discharge Date: 08/29/18 Primary Care Provider: Dr. Avitia; Cardiology-Dr. Thomas Disposition: ROUTINE DISCHARGE Discharge Condition: GOOD Reason for Admission: Shortness of breath Consultations: Cardiology-Dr. Thomas Procedures: ECHO: EF-35%LEFT VENTRICULAR WALL MOTION: MODERATE GLOBAL HYPOKINESIS. DOPPLER/COLOR FLOW: MODERATE- SEVERE MITRAL REGURGITATION. MILD TRICUSPID REGURGITATION. RIGHT VENTRICULAR SYSTOLIC PRESSURE 50 MMHG. COMMENTS: MODERATE GLOBAL HYPOKINESIS- EJECTION FRACTION 35-40%. MODERATED TO SEVERE MITRAL REGURGITATION. MILD TRICUSPID REGURGITATION. MITRAL ANNULAR CALCIFICATION. LEFT ATRIAL ENLARGEMENT. MODERATE PULMONARY HYPERTENSION. RIGHT VENTRICULAR SYSTOLIC PRESSURE 50 MMHG. Liver ultrasound: COMPARISON: No comparisons FINDINGS: The liver is normal in size, shape and echotexture.No focal liver lesion or intrahepatic biliary dilatation.No evidence of portal vein thrombosis. The spleen is normal in size measuring 10.8 cm. IMPRESSION: Normal examination Medical Problem list: Shortness of breath and palpitations secondary to new onset valvular atrial fibrillation with RVR and acute on chronic systolic CHF, ejection fraction 35% with echo showing moderate global hypokinesis, moderate to severe mitral regurgitation, moderate pulmonary hypertension. Moderate to severe Mitral valve regurgitation with history of distant mitral valve repair Hypertension Obstructive sleep apnea Elevated liver function GERD Brief History of Present Illness: 88-year-old male presented to emergency room with shortness of breath. Patient with history of diastolic CHF, hypertension, glaucoma, obstructive sleep apnea and mitral valve repair in the distant past. Patient had increasing shortness of breath over the past week. He were also reported some palpitations and edema to the lower extremity. Patient reports seen by cardiovascular surgery about 2 weeks ago at [facility]. He was re-evaluated for his mitral valve. No intervention is required. In the emergency room patient found to be with new onset atrial fibrillation, rate around 130. White count 8.0. Hemoglobin 14. Sodium 141, potassium 4.6, BUN of 19, creatinine 1.0 with a GFR 61. Glucose 106. Venous Doppler of the left lower extremity showed no DVT. Chest x-ray shows CHF pattern. Total bilirubin 1.1, direct bilirubin 0.6. AST 43, ALT 83. Troponin less than 0.02 with a BNP of 2695. Patient was given metoprolol 5 mg IV x2 along with metoprolol 50 mg. Rate has improved. Blood pressure stable. Patient admitted for further evaluation. When I saw the patient ER, his [id number] was at bedside. Patient denied any chest pain. No nausea, vomiting, diarrhea or constipation noted. Hospital Course: Patient presented with shortness of breath and palpitations. Patient found to be in new onset valvular atrial fibrillation with RVR. This was secondary to acute on chronic systolic CHF. Echocardiogram showed ejection fraction 35% with moderate global hypokinesis, moderate to severe mitral regurgitation and moderate pulmonary hypertension. The patient was stabilized during his stay. Medications were adjusted. Cardiology consulted. Patient was started on anti coagulation therapy and rate control medication. Patient did well during his stay. At discharge the patient continue with metoprolol 50 mg 1 pill twice daily and Lasix 40 mg 1 pill twice daily. At discharge patient will continue with chronic anti coagulation therapy-Coumadin 5 mg every night. Patient is to have his INR checked daily for the next week. Goal INR will be 2-3. Further adjustment in medication and INR checks can be done by cardiology. INR checks will be sent to Cardiology for further recommendation. Cardiology recommends that the patient be further evaluated by CV surgery as an outpatient for possible mitral valve replacement. Patient will need to limit his activities at home. Recommendation is to continue with a 1500 cc per day fluid restriction and low-salt diet. Patient will need to have his weight monitored daily. If his weight increases by more than 5 lb he is to contact cardiology for further recommendation. Prior to discharge home health, physical therapy and caregiver services will be arranged. Education on mitral valve regurgitation, atrial fibrillation, chronic anti coagulation therapy-Coumadin will be provided. Patient has obstructive sleep apnea. Patient will continue with CPAP at night. Patient had elevated liver function likely related to congestive heart failure. Liver ultrasound unremarkable. Patient has GERD. Patient continue with Protonix 40 mg 1 pill once daily. Patient has anxiety. Patient may continue with alprazolam as needed. Please note Norvasc and MARGA-inhibitor have been discontinued. Recommendation on no further use of nonsteroidal anti-inflammatories since the patient will be taking Coumadin daily. Vital Signs/Physical Exam: Temp Pulse Resp BP Pulse Ox 97 F 117 H 18 126/96 H 93 10 09:32 08/29/18 09:43 10 09:32 08/29/18 09:43 08/29/18 09:32 General: Alert, In no apparent distress, Oriented x3, Cooperative HEENT: Atraumatic Neck: Supple Respiratory: Clear to auscultation bilaterally, Normal air movement Cardiovascular: Irregular heart rate/rhythm (Atrial fibrillation, rate around 100-110) Gastrointestinal: No tenderness, No masses, No rebound, No guarding Musculoskeletal: No erythema, No tenderness, No warmth Integumentary: No tenderness/swelling, No erythema, No warmth, No cyanosis Neurological: Normal speech, Normal strength at 5/5 x4 extr, Normal tone, Normal affect Laboratory Data at Discharge: WBC 5.8 K/uL (4.3-10.9) D 08/29/18 04:17 Hgb 12.8 g/dL (13.6-17.9) L 08/29/18 04:17 Hct 37.7 % (39.6-49.0) L 08/29/18 04:17 Plt Count 179 K/uL (152-406) 08/29/18 04:17 PT 16.1 SECONDS (9.5-12.5) H 08/29/18 04:17 INR 1.36 08/29/18 04:17 Sodium 141 mmol/L (136-145) 08/29/18 04:17 Potassium 3.5 mmol/L (3.5-5.1) 08/29/18 04:17 BUN 12 mg/dL (7-18) 08/29/18 04:17 Creatinine 0.70 mg/dL (0.55-1.3) 08/29/18 04:17 Glucose 85 mg/dL (74-106) 08/29/18 04:17 Magnesium 1.9 mg/dL (1.8-2.4) 08/29/18 04:17 Total Bilirubin 0.7 mg/dL (0.2-1.0) 08/29/18 04:17 AST 26 U/L (15-37) 08/29/18 04:17 ALT 58 U/L (12-78) 08/29/18 04:17 Alkaline Phosphatase 67 U/L (45-117) 08/29/18 04:17 Troponin I < 0.02 ng/mL (0.0-0.045) 08/26/18 22:34 Triglycerides 71 mg/dL (<150) 08/27/18 04:15 Cholesterol 126 mg/dL (<200) 08/27/18 04:15 HDL Cholesterol 44 mg/dL (40-60) 08/27/18 04:15 Cholesterol/HDL Ratio 2.86 08/27/18 04:15 Home Medications: Alprazolam [Xanax] 0.25 mg PO BEDTIME PRN 08/26/18 Furosemide [Lasix*] 40 mg PO BIDL #60 tab 08/29/18 Metoprolol Tartrate [Lopressor*] 50 mg PO BID 6AM 6PM #60 tab 08/29/18 Pantoprazole [Protonix Tab*] 40 mg PO DAILYAC #30 tab 08/29/18 Warfarin Sodium [Coumadin*] 5 mg PO DAILY 5 PM #30 tab 08/29/18 New Medications: Furosemide [Lasix*] 40 mg PO BIDL #60 tab Metoprolol Tartrate [Lopressor*] 50 mg PO BID 6AM 6PM #60 tab Pantoprazole [Protonix Tab*] 40 mg PO DAILYAC #30 tab Warfarin Sodium [Coumadin*] 5 mg PO DAILY 5 PM #30 tab Patient Discharge Instructions: 1. Patient will need to follow up with his PCP in 1 week to follow up this hospitalization. 2. Patient presented with shortness of breath and palpitations. Patient found to be in new onset valvular atrial fibrillation with RVR. This was secondary to acute on chronic systolic CHF. Echocardiogram showed ejection fraction 35% with moderate global hypokinesis, moderate to severe mitral regurgitation and moderate pulmonary hypertension. The patient was stabilized during his stay. Medications were adjusted. Cardiology consulted. Patient was started on anti coagulation therapy and rate control medication. Patient did well during his stay. At discharge the patient continue with metoprolol 50 mg 1 pill twice daily and Lasix 40 mg 1 pill twice daily. At discharge patient will continue with chronic anti coagulation therapy-Coumadin 5 mg every night. Patient is to have his INR checked daily for the next week. Goal INR will be 2-3. Further adjustment in medication and INR checks can be done by cardiology. INR checks will be sent to Cardiology for further recommendation. Cardiology recommends that the patient be further evaluated by CV surgery as an outpatient for possible mitral valve replacement. Patient will need to limit his activities at home. Recommendation is to continue with a 1500 cc per day fluid restriction and low-salt diet. Patient will need to have his weight monitored daily. If his weight increases by more than 5 lb he is to contact cardiology for further recommendation. Prior to discharge home health, physical therapy and caregiver services will be arranged. Education on mitral valve regurgitation, atrial fibrillation, chronic anti coagulation therapy-Coumadin will be provided. 3. Patient has obstructive sleep apnea. Patient will continue with CPAP at night. 4. Patient had elevated liver function likely related to congestive heart failure. Liver ultrasound unremarkable. 5. Patient has GERD. Patient continue with Protonix 40 mg 1 pill once daily. 6. Patient has anxiety. Patient may continue with alprazolam as needed. 7. Please note Norvasc and MARGA-inhibitor have been discontinued. 8. Recommendation on no further use of nonsteroidal anti-inflammatories since the patient will be taking Coumadin daily. Diet: AHA Activity: Fall precautions Time spent managing pt's care (in minutes): 55
[2018-08-29 14:01] VITALS: O2SAT 95
[2018-08-29 14:10] VITALS: BP 111/65; TEMP 97.7
[2018-08-30 20:13] LABS: HBsAG Nonreactive (Nonreactive); Hepatitis A IgM Antibody Nonreactive
== END 2018-08-29 15:00 | disposition home health service (06) | DRG 308 ==
LOC: ER 07:49 → ERHOLD 10:04 → 2ND 12:30
PROVIDERS: ADMIT Family Medicine; ATTEND Family Medicine
DX: I48.91 Unspecified atrial fibrillation (principal); I50.23 Acute on chronic systolic (congestive) heart failure; I34.0 Nonrheumatic mitral (valve) insufficiency; I11.0 Hypertensive heart disease with heart failure; G47.33 Obstructive sleep apnea (adult) (pediatric); R94.5 Abnormal results of liver function studies; K21.9 Gastro-esophageal reflux disease without esophagitis; I27.20 Pulmonary hypertension, unspecified; F41.9 Anxiety disorder, unspecified; Z88.2 Allergy status to sulfonamides; Z87.891 Personal history of nicotine dependence; Z66 Do not resuscitate
CPT/HCPCS: 36415; 71045; 71046; 76705; 80048; 80053; 80061; 80074; 80076; 81003; 82550; 82553; 83735; 83880; 84439; 84443; 84484; 85025; 85610; 87040; 93005; 93306; 93971; 96365; 96372; 96375; 97163; 99285; J1160; J1650; J1940

== ENCOUNTER 2018-09-01 14:11 | Inpatient (IN) | payer OTHER ==
--- OUTSIDE RECORDS SUMMARY | 2018-09-01 14:14 | XMS REPORT | Clinical Summary ---
:1930 Author Organization [facility] Address [address] [place] [id number] Care Team Providers Name Role Phone Laurent [...] cain Krishnamurthy MD regurgitation (Primary Dx) after 08/31/2017 Family History Medical History Relation Name Comments [...] procedure are in the results section. after 08/31/2017 Results Cardiac mri valve assessment w contrast (07/29/2018 4:43 PM) Narrative Performed At [facility] CMR Report Name: SEFERINO URIAS Debra :1930 Scan Date: 2018-07-29 15:05:18 [...] | Mild/Mod Hypo | 51-75% || Transmural OR| | Base Anterolateral | Mild/Mod Hypo | 1-25%|| Sub-Endo OR| | Mid Anterior | Mild/Mod Hypo | None ||| | Mid Anteroseptal | Mild/Mod Hypo | None ||| | Mid Inferoseptal | Mild/Mod Hypo | None ||| | Mid Inferior | Mild/Mod Hypo | None ||| | Mid Inferolateral| Severe Hypo | 26-50% || Sub-Endo OR| | Mid Anterolateral| Severe Hypo | 26-50% || Sub-Endo OR| | Apical Anterior| Mild/Mod Hypo | None ||| | Apical Septal| Mild/Mod Hypo | None ||| | Apical Inferior| Mild/Mod Hypo | None ||| | Apical Lateral | Mild/Mod Hypo | None ||| | Aldrich | Mild/Mod Hypo | None ||| + [...] SCAN INFO GENERAL CONTRAST AGENT TYPE:[employer] LOT NUMBER:[id number] EXPIRATION DATE:2019-04-22 00:00:00 VOLUME ADMINISTERED:25 ml DOSAGE [...] MD TECHNOLOGIST:Amira White RT BILLING Patient Account [id number] CPT Codes 83809, 82690, 38341 ICD10 Codes I34.0, R93.1 ADDITIONAL NOTES AOFF [...] PM CDT Francisco Crenshaw CMR Report Name: SEFERINO URIAS : 1930 Scan Date: 2018-07-29 15:05:18 [...] Mild/Mod Hypo | 51-75% | | Transmural OR | | Base Anterolateral | Mild/Mod Hypo | 1-25% | | Sub-Endo OR | | Mid Anterior | Mild/Mod Hypo | None | | | | Mid Anteroseptal | Mild/Mod Hypo | None | | | | Mid Inferoseptal | Mild/Mod Hypo | None | | | | Mid Inferior | Mild/Mod Hypo | None | | | | Mid Inferolateral | Severe Hypo | 26-50% | | Sub-Endo OR | | Mid Anterolateral | Severe Hypo | 26-50% | | Sub-Endo OR | | Apical Anterior | Mild/Mod Hypo | None | | | | Apical Septal | Mild/Mod Hypo | None | | | | Apical Inferior | Mild/Mod Hypo | None | | | | Apical Lateral | Mild/Mod Hypo | None | | | | Aldrich | Mild/Mod Hypo | None | | [...] GENERAL CONTRAST AGENT TYPE: [employer] LOT NUMBER: [id number] EXPIRATION DATE: 2019-04-22 00:00:00 VOLUME ADMINISTERED: 25 [...] TECHNOLOGIST: Amira White RT BILLING Patient Account [id number] CPT Codes 28762, 73929, 73283 ICD10 Codes I34.0, R93.1 ADDITIONAL NOTES AOFF 76, 59 CORRECTED PAFF 81 CORRECTED IS SAME AR DIRECT BY STJ 27 ML CORRECTED ARRF=27/59=46% LVOT 79 MR=86 - 59=27 MRRF=27/ (86- AR 27)=43% TR=PRESENT BUT NOT QUANTIFIED PAFF 81 HIGHER THAN RVSV Report generated by [employer], a product of [employer] Performing Organization Address City/State/[facility] Phone Number [facility] [phone] [place] [address] Estimated GFR (07/29/2018 2:45 PM) GFR Non Af Amer >90 mL/min/1.73 m2 [facility] DEPARTMENT OF PATHOLOGY AND GENOMIC MEDICINE GFR Af Amer >90 mL/min/1.73 m2 [facility] DEPARTMENT OF Comment: PATHOLOGY AND GENOMIC [...] and Americans. Specimen Blood Performing Organization Address City/State/[facility] DEPARTMENT OF PATHOLOGY AND [address] [place] [phone] GENOMIC MEDICINE POC panel (07/29/2018 2:45 PM) POC creatinine 0.6 (L) 0.7 - 1.2 mg/dl [facility] DEPARTMENT OF PATHOLOGY AND GENOMIC MEDICINE POC hematocrit 47 41 - 51 % [facility] DEPARTMENT OF PATHOLOGY Comment: AND GENOMIC MEDICINE Meter ID: [id number] Piping Design Specialist: Eliseo Nj Performing Organization Address City/[facility] Phone Number [facility] DEPARTMENT OF PATHOLOGY AND [address] [place] [id number] GENOMIC MEDICINE after 08/31/2017 Insurance Payer Benefit Plan / Group Subscriber ID Type Phone Address MEDICARE MEDICARE PART A AND B xxxxxxxxxx Medicare [place], [place] AETNA AETNA PPO OPEN CHOICE xxxxx PPO Home: 119 [phone] [address]
[2018-09-01 14:43] LABS: Protime INR 1.75
[2018-09-01 14:47] LABS: Absolute Lymphocytes (CBC) 1.1 K/uL (0.7-4.9); Absolute Monocytes 0.9 K/uL (0.1-1.3); Absolute Neutrophil 5.1 K/uL (1.8-8.0); Basophils % 0.8 % (0-1.3); Eosinophils % 0.8 % (0-4.4); Hematocrit 39.3 % (39.6-49.0); Lymphocytes % 15.5 % (15.3-44.8); MCH 33.1 pg (27.0-35.0); MCV 95.7 fL (80-100); MPV 10.7 fL (7.6-11.3); Monocytes % 11.9 % (3.3-12.3); RBC Red Blood Cell Count 4.11 M/uL (4.33-5.43)
--- NOTE | 2018-09-01 15:06 | EDPHYS ---
Physician Documentation [facility] Name: Seferino Hernandez Age: 88 yrs Sex: Male : 1930 Arrival Date: 09/01/2018 Time: 14:13 Bed 5 Private MD: ED Physician Kian Lewis HPI: 09/02 07:44 This 88 yrs old Male presents to ER via EMS with complaints of Shortness Of kdr Breath. 07:44 The patient has shortness of breath at rest, with light activity. Onset: The kdr symptoms/episode began/occurred gradually, 1 week(s) ago. Duration: The symptoms are continuous, and are steadily getting worse. The patient's shortness of breath is aggravated by coughing, exertion, light activity, supine position, walking, is alleviated by rest. Associated signs and symptoms: The patient has no apparent associated signs or symptoms. Severity of symptoms: At their worst the symptoms were mild moderate just prior to arrival, in the emergency department the symptoms are unchanged. The patient has experienced similar episodes in the past, multiple times. The patient has been recently been admitted at [facility], was discharged last week. Historical: - Allergies: 09/01 14:18 Sulfa (Sulfonamide Antibiotics); hj - Home Meds: 14:18 furosemide 40 mg oral tab 1 tab once daily [Active]; pantoprazole 40 mg oral TbEC 1 tab hj once daily [Active]; warfarin 5 mg Oral tab 1 tab once daily [Active]; alprazolam 0.25 mg Oral tab 1 tab as needed [Active]; doxylamine-pyridoxine oral oral once daily [Active]; metoprolol tartrate 50 mg Oral tab 1 tab 2 times per day [Active]; - PMHx: 14:18 Hypertension; mitral valve repair; Atrial Fib; hj - PSHx: 14:18 Unable to obtain; hj - Immunization history:: Adult Immunizations up to date. - Social history:: Smoking status: Patient/guardian denies using tobacco, Patient/guardian denies using alcohol. - Ebola Screening: : Patient negative for fever greater than or equal to 101.5 degrees Fahrenheit, and additional compatible Ebola Virus Disease symptoms Patient denies exposure to infectious person Patient denies travel to an Ebola-affected area in the 21 days before illness onset. ROS: 09/02 07:44 Constitutional: Negative for fever, chills, and weight loss, Eyes: Negative for injury, kdr pain, redness, and discharge, Neck: Negative for injury, pain, and swelling, Cardiovascular: Negative for chest pain, palpitations, and edema, Abdomen/GI: Negative for abdominal pain, nausea, vomiting, diarrhea, and constipation, Back: Negative for injury and pain, : Negative for injury, bleeding, discharge, and swelling, MS/Extremity: Negative for injury and deformity, Skin: Negative for injury, rash, and discoloration, Neuro: Negative for headache, weakness, numbness, tingling, and seizure activity. Psych: Negative for depression, anxiety, suicide ideation, homicidal ideation, and hallucinations, Allergy/Immunology: Negative for hives, rash, and allergies, Endocrine: Negative for neck swelling, polydipsia, polyuria, polyphagia, and marked weight changes, Hematologic/Lymphatic: Negative for swollen nodes, abnormal bleeding, and unusual bruising. Respiratory: Positive for dyspnea on exertion, shortness of breath, at rest. Negative for cough, hemoptysis, orthopnea, pleurisy. Exam: 07:44 Constitutional: This is a well developed, well nourished patient who is awake, alert, kdr and in no acute distress. Head/Face: Normocephalic, atraumatic. Eyes: Pupils equal round and reactive to light, extra-ocular motions intact. Lids and lashes normal. Conjunctiva and sclera are non-icteric and not injected. Cornea within normal limits. Periorbital areas with no swelling, redness, or edema. Neck: Trachea midline, no thyromegaly or masses palpated, and no cervical lymphadenopathy. Supple, full range of motion without nuchal rigidity, or vertebral point tenderness. No Meningismus. Chest/axilla: Normal chest wall appearance and motion. Nontender with no deformity. No lesions are appreciated. Cardiovascular: Regular rate and rhythm with a normal S1 and S2. No gallops, murmurs, or rubs. Normal PMI, no JVD. No pulse deficits. Abdomen/GI: Soft, non-tender, with normal bowel sounds. No distension or tympany. No guarding or rebound. No evidence of tenderness throughout. Back: No spinal tenderness. No costovertebral tenderness. Full range of motion. Skin: Warm, dry with normal turgor. Normal color with no rashes, no lesions, and no evidence of cellulitis. 07:44 Respiratory: the patient does not display signs of respiratory distress, Respirations: normal, Breath sounds: decreased breath sounds, that are mild, are scattered. Vital Signs: 09/01 14:13 Pulse 135; Resp 24; Pulse Ox 87% on R/A; hb 14:19 BP 120 / 84; Pulse 130; Resp 18; Temp 98.1(TE); Pulse Ox 98% on 3 lpm NC; Weight 85.73 hj kg; Height 5 ft. 11 in. (180.34 cm); 14:23 BP 103 / 46; Pulse 106; Resp 18; Pulse Ox 98% on 3 lpm NC; hj 14:44 BP 105 / 83; Pulse 125; Resp 18; Pulse Ox 99% on 3 lpm NC; hj 15:33 BP 111 / 91; Pulse 117; Resp 24; Temp 97.8; Pulse Ox 98% on 3 lpm NC; ph 14:19 Body Mass Index 26.36 (85.73 kg, 180.34 cm) hj MDM: 15:05 Patient medically screened. kdr 09/02 07:44 Data reviewed: vital signs, nurses notes, lab test result(s), EKG, radiologic studies. kdr Counseling: I had a detailed discussion with the patient and/or guardian regarding: the historical points, exam findings, and any diagnostic results supporting the discharge/admit diagnosis, lab results, radiology results, the need for further work-up and treatment in the hospital. 09/01 14:14 Order name: Basic Metabolic Panel kdr 09/01 14:14 Order name: CBC with Diff kdr 09/01 14:14 Order name: LFT's kdr 09/01 14:14 Order name: Magnesium kdr 09/01 14:14 Order name: NT PRO-BNP kdr 09/01 14:14 Order name: PT-INR kdr 09/01 14:14 Order name: Troponin (emerg Dept Use Only) kdr 09/01 14:14 Order name: XRAY Chest (1 view) kdr 09/01 14:14 Order name: EKG; Complete Time: 14:14 kdr 09/01 14:14 Order name: Cardiac monitoring; Complete Time: 14:20 kdr 09/01 14:14 Order name: EKG - Nurse/Tech; Complete Time: 14:33 kdr 09/01 14:14 Order name: IV Saline Lock; Complete Time: 14:21 kdr 09/01 14:14 Order name: Labs collected and sent; Complete Time: 14:33 kdr 09/01 14:14 Order name: O2 Per Protocol; Complete Time: 14:21 kdr 09/01 14:14 Order name: O2 Sat Monitoring; Complete Time: 14:21 kdr Administered Medications: No medications were administered Disposition: 09/01/18 15:05 Hospitalization ordered by Keara Mckee for Inpatient Admission. Preliminary diagnosis are Congestive Heart Failure, Shortness of breath, Pedal Edema. - Bed requested for Telemetry/MedSurg (Inpatient). - Status is Inpatient Admission. ph - Condition is Fair. - Problem is an acute exacerbation. - Symptoms have improved. UTI on Admission? No Signatures: Dispatcher [employer] EDSushma Powell RN RN Kian Starks MD MD kdr Hall, Patricia, RN RN Sina Sierra RN RN Corrections: (The following items were deleted from the chart) 09/01 15:15 15:05 Hospitalization Ordered by Keara Mckee MD for Inpatient Admission. Preliminary dw diagnosis is Congestive Heart Failure; Shortness of breath; Pedal Edema. Bed requested for Telemetry/MedSurg (Inpatient). Status is Inpatient Admission. Condition is Fair. Problem is an acute exacerbation. Symptoms have improved. UTI on Admission? No. kdr 16:06 15:15 09/01/2018 15:05 Hospitalization Ordered by Keara Mckee MD for Inpatient ph Admission. Preliminary diagnosis is Congestive Heart Failure; Shortness of breath; Pedal Edema. Bed requested for Telemetry/MedSurg (Inpatient). Status is Inpatient Admission. Condition is Fair. Problem is an acute exacerbation. Symptoms have improved. UTI on Admission? No. dw
--- NOTE | 2018-09-01 15:06 | ER ---
Nurse's Notes [facility] Name: Seferino Hernandez Age: 88 yrs Sex: Male : 1930 Arrival Date: 09/01/2018 Time: 14:13 Bed 5 Private MD: Diagnosis: Congestive Heart Failure;Shortness of breath;Pedal Edema Presentation: 09/01 14:13 Presenting complaint: EMS states: complaints of SOB x 1 week; pt is about to take a nap hj this PM when he SOB is getting worse, cant sleep; 95% on RA; Afib 120- 140's; 20 g L hand;. Transition of care: patient was not received from another setting of care. Onset of symptoms was September 01, 2018. Risk Assessment: Do you want to hurt yourself or someone else? Patient reports no desire to harm self or others. Initial Sepsis Screen: Does the patient meet any 2 criteria? No. Patient's initial sepsis screen is negative. Does the patient have a suspected source of infection? No. Patient's initial sepsis screen is negative. Care prior to arrival: None. 14:13 Method Of Arrival: EMS: [facility] 14:13 Acuity: ALLYSON 2 hb Triage Assessment: 14:18 General: Appears in no apparent distress. uncomfortable, Behavior is calm, cooperative, hj appropriate for age. Pain: Denies pain. Respiratory: Reports shortness of breath Onset: The symptoms/episode began/occurred for a week, the patient has moderate shortness of breath. Historical: - Allergies: 14:18 Sulfa (Sulfonamide Antibiotics); hj - Home Meds: 14:18 furosemide 40 mg oral tab 1 tab once daily [Active]; pantoprazole 40 mg oral TbEC 1 tab hj once daily [Active]; warfarin 5 mg Oral tab 1 tab once daily [Active]; alprazolam 0.25 mg Oral tab 1 tab as needed [Active]; doxylamine-pyridoxine oral oral once daily [Active]; metoprolol tartrate 50 mg Oral tab 1 tab 2 times per day [Active]; - PMHx: 14:18 Hypertension; mitral valve repair; Atrial Fib; hj - PSHx: 14:18 Unable to obtain; hj - Immunization history:: Adult Immunizations up to date. - Social history:: Smoking status: Patient/guardian denies using tobacco, Patient/guardian denies using alcohol. - Ebola Screening: : Patient negative for fever greater than or equal to 101.5 degrees Fahrenheit, and additional compatible Ebola Virus Disease symptoms Patient denies exposure to infectious person Patient denies travel to an Ebola-affected area in the 21 days before illness onset. Screenin:18 Abuse screen: Denies threats or abuse. Denies injuries from another. Nutritional hj screening: No deficits noted. Tuberculosis screening: No symptoms or risk factors identified. Fall Risk Fall in past 12 months (25 points). Assessment: 14:18 Pain: Denies pain. Cardiovascular: Rhythm is atrial flutter. Respiratory: Airway is hj patent Respiratory effort is even, unlabored, Respiratory pattern is regular, Breath sounds are clear. 14:22 Reassessment: awaiting results and POC:. 14:33 General: Appears in no apparent distress. comfortable, slender, well groomed, Behavior ph is calm, cooperative, appropriate for age, Denies fever. Pain: Denies pain. Neuro: Level of Consciousness is awake, alert, obeys commands, Oriented to person, place, time, situation. Cardiovascular: Reports diaphoresis, shortness of breath, Denies chest pain, nausea, vomiting, Capillary refill < 3 seconds in bilateral toes Patient's skin is warm and dry. Edema is 1+ to left ankle, left foot, right ankle and right foot Rhythm is atrial fibrillation with rapid ventricular response. Respiratory: Reports shortness of breath at rest Airway is patent Respiratory effort is even, unlabored, Respiratory pattern is regular, symmetrical. GI: No signs and/or symptoms were reported involving the gastrointestinal system. Derm: Skin is intact, Skin is pink, warm \T\ dry. Musculoskeletal: Circulation, motion, and sensation intact. Range of motion: intact in all extremities. 14:43 Reassessment: family in room;. Vital Signs: 14:13 Pulse 135; Resp 24; Pulse Ox 87% on R/A; hb 14:19 BP 120 / 84; Pulse 130; Resp 18; Temp 98.1(TE); Pulse Ox 98% on 3 lpm NC; Weight 85.73 hj kg; Height 5 ft. 11 in. (180.34 cm); 14:23 BP 103 / 46; Pulse 106; Resp 18; Pulse Ox 98% on 3 lpm NC; hj 14:44 BP 105 / 83; Pulse 125; Resp 18; Pulse Ox 99% on 3 lpm NC; hj 15:33 BP 111 / 91; Pulse 117; Resp 24; Temp 97.8; Pulse Ox 98% on 3 lpm NC; ph 14:19 Body Mass Index 26.36 (85.73 kg, 180.34 cm) ED Course: 14:13 Patient arrived in ED. hj 14:13 Kian Lewis MD is Attending Physician. kdr 14:15 Triage completed. hj 14:16 Michelle Chun, RN is Primary Nurse. ph 14:19 Arm band placed on right wrist. hj 14:19 Patient has correct armband on for positive identification. Placed in gown. Bed in low hj position. Call light in reach. Side rails up X 1. Adult w/ patient. 14:37 Maintain EMS IV. Dressing intact. Good blood return noted. Site clean \T\ dry. Gauge \T\ ph site: 22 L hand. 14:41 XRAY Chest (1 view) In Process Unspecified. EDMS 14:49 EKG done, by electronic tech. reviewed by Kian Lewis MD. sm3 15:03 Keara Mckee MD is Hospitalizing Provider. kdr Administered Medications: No medications were administered Outcome: 15:05 Decision to Hospitalize by Provider. kdr 16:06 Patient left the ED. ph Signatures: Dispatcher [employer] EDMS Kian Lewis MD MD kdr Michelle Chun RN NIKIA Sina Sierra RN RN Amada Barrow RN RN Melly Brito sm3 Corrections: (The following items were deleted from the chart) 14:15 14:13 Acuity: ALLYSON 3 hj hb 14:23 14:22 BP 100 / 52; Pulse 106bpm; Resp 18bpm; Pulse Ox 99% 3 lpm Nasal Cannula; hj hj
[2018-09-01 15:30] LABS: ALT/SGPT 68 U/L (12-78); AST/SGOT 32 U/L (15-37); Albumin 3.3 g/dL (3.4-5.0); Alkaline Phosphatase 72 U/L (45-117); BUN Blood Urea Nitrogen 21 mg/dL (7-18); Bicarbonate 29 mmol/L (21-32); Bilirubin Direct 0.3 mg/dL (0-0.2); Bilirubin Total 0.5 mg/dL (0.2-1.0); Glucose Level 121 mg/dL (74-106); Magnesium 2.2 mg/dL (1.8-2.4); NT PRO-BNP 2516 pg/mL (<450); Potassium 4.1 mmol/L (3.5-5.1); Protein, Total 6.4 g/dL (6.4-8.2); Sodium Level 141 mmol/L (136-145); Troponin (Emerg Dept Use Only) < 0.02 ng/mL (0.0-0.045)
[2018-09-01] MEDS ORDERED: ONDANSETRON 4 MG/2 ML VIAL IV PRN (16:14)
[2018-09-01] MEDS ORDERED: ACETAMINOPHEN 500 MG TAB PO PRN (16:14)
--- NOTE | 2018-09-01 16:44 | P.HP ---
Certification for Inpatient Patient admitted to: Inpatient With expected LOS: >2 Midnights Patient will require the following post-hospital care: None Practitioner: I am a practitioner with admitting privileges, knowledge of patient current condition, hospital course, and medical plan of care. Services: Services provided to patient in accordance with Admission requirements found in Title 42 Section 412.3 of the Code of Federal Regulations Patient History Date of Service: 09/01/18 Primary Care Provider: Dr Thomas Cardiology Reason for admission: SOb History of Present Illness: This is a 88-year-old male with significant past medical history of AFib, CHF, by Bill regurg replacement, who presented to the ED complaining of having some shortness of breath. Patient stated that his shortness of breath has been chronic and has been going on for over a month scan progressively worse. Patient was recently admitted to the hospital for similar symptoms and was discharged home on medication after being diagnosed with severe congestive heart failure. The patient states that he was compliant with his medication however still started having some more shortness of breath and was not able to lay flat and thus decided to come to the ER. Patient states that he has not had any fever chills nausea vomiting or any other associated symptoms aside from shortness of breath. Patient states that he was going to be seen by Dr. Thomas tomorrow in his office at around 11 o'clock however he could not make that appointment as he came to the ER today. Patient stated that for last couple of days he has been having trouble laying flat and has to use 4-5 pillows every day to help him sleep at night time. Allergies Sulfa (Sulfonamide Antibiotics) Allergy (Verified 07/15/18 11:10) Unknown Home Medications: Alprazolam [Xanax] 0.125 mg PO BEDTIME PRN 08/26/18 Furosemide [Lasix*] 40 mg PO BIDL #60 tab 08/29/18 Metoprolol Tartrate [Lopressor*] 50 mg PO BID 6AM 6PM #60 tab 08/29/18 Pantoprazole [Protonix Tab*] 40 mg PO DAILYAC #30 tab 08/29/18 Warfarin Sodium [Coumadin*] 5 mg PO DAILY 5 PM #30 tab 08/29/18 Doxylamine Succinate [Unisom] 12.5 mg PO BEDTIME PRN 09/01/18 - Past Medical/Surgical History Diabetic: No -: Hypertension -: Diastolic CHF -: History of Mitral valve repair -: Obstructive sleep apnea -: Glaucoma -: Former tobacco use -: Mitral valve 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 He has 6 children. He is retired. - Family History Mother -: Heart disease Father -: Stroke Brother -: Heart disease, Hypertension - Social History Alcohol use: Yes CD- Drugs: No Caffeine use: Yes Review of Systems 10-point ROS is otherwise unremarkable Physical Examination - Vital Signs Temperature: 97.8 F Blood Pressure: 111/91 Pulse: 117 Respirations: 24 - Physical Exam General: Alert, In no apparent distress HEENT: Atraumatic, PERRLA, Mucous membr. moist/pink, EOMI, Sclerae nonicteric Neck: Supple, 2+ carotid pulse no bruit, No LAD, Without JVD or thyroid abnormality Respiratory: Normal air movement, Crackles/rales Cardiovascular: Regular rate/rhythm, Normal S1 S2 Gastrointestinal: Normal bowel sounds, No tenderness Musculoskeletal: No tenderness, Swelling Integumentary: No rashes Neurological: Normal speech, Normal strength at 5/5 x4 extr, Normal tone Lymphatics: No axilla or inguinal lymphadenopathy - Studies Laboratory Data (last 24 hrs) 09/01/18 14:25: PT 20.8 H, INR 1.75 09/01/18 14:25: WBC 7.2 D, Hgb 13.6, Hct 39.3 L, Plt Count 206 09/01/18 14:25: Sodium 141, Potassium 4.1, BUN 21 H, Creatinine 0.90, Glucose 121 H, Magnesium 2.2, Total Bilirubin 0.5, AST 32, ALT 68, Alkaline Phosphatase 72 Assessment and Plan - Problems (Diagnosis) (1) SOB (shortness of breath) Onset Date: 08/29/18 Current Visit: No Status: Acute Plan: Dyspnea most likely secondary to CHF exacerbation -patient currently on oxygen will wean off as tolerated -treat underlying condition of CHF with IV Lasix at this time (2) CHF exacerbation Current Visit: Yes Status: Acute Plan: Acute CHF exacerbation systolic. -last echocardiogram with ejection fraction of 35% with global hypokinesis. -patient with history of mitral valve replacement as well. -will restart patient on home medication along with IV Lasix -will consult cardiology for further care. -fluid restriction of 1.5 L Qualifiers: Heart failure type: combined systolic and diastolic Qualified Code(s): I50.43 - Acute on chronic combined systolic (congestive) and diastolic ( congestive) heart failure (3) Atrial fibrillation Current Visit: Yes Status: Chronic Plan: Chronic AFib with RVR. Heart rate of 90s to 130s -will start back on rate control and anticoagulation at this time Qualifiers: Atrial fibrillation type: chronic Qualified Code(s): I48.2 - Chronic atrial fibrillation (4) Hypertension Onset Date: 08/29/18 Current Visit: No Status: Chronic Plan: Restart home medication Qualifiers: Hypertension type: essential hypertension Qualified Code(s): I10 - Essential (primary) hypertension (5) AVILA (obstructive sleep apnea) Onset Date: 08/29/18 Current Visit: No Status: Chronic Discharge Plan: Home Plan to discharge in: 48 Hours - Advance Directives Does patient have a Living Will: Yes Does patient have a Durable POA for Healthcare: Yes - Code Status/Comfort Care Code Status Assessed: Yes Critical Care: No
--- NOTE | 2018-09-01 16:51 | EKG ---
Test Date: 2018-09-01 Test Time: 14:31:05 Culled Fruit Packer: LUDWIG MEASUREMENT RESULTS: Intervals: Rate: 117 [place]: QRSD: 98 QT: 356 QTc: 496 [place]: P: [place]: QRS: -21 T: 55 INTERPRETIVE STATEMENTS: Atrial fibrillation with rapid ventricular response Cannot rule out Anterior infarct, age undetermined Abnormal ECG Compared to ECG 08/26/2018 08:00:06 Ventricular premature complex(es) no longer present Myocardial infarct finding still present Electronically Signed On 09-01-18 16:51:03 CDT by Dante Thomas
[2018-09-01] MEDS ORDERED: ENOXAPARIN 40 MG/0.4 ML SQ SCH (17:00)
--- NOTE | 2018-09-01 17:22 | RAD REPORT ---
EXAM DESCRIPTION: RAD - Chest Single View - 09/01/2018 2:41 pm CLINICAL HISTORY: Chest pain, shortness of breath August 27 COMPARISON: None. TECHNIQUE: AP portable chest image was obtained 1436 hours . FINDINGS: Lung volumes are reduced. Cardiomegaly is present with vascular engorgement. Interstitial markings are prominent. Costophrenic angle blunting present. Trachea is midline. Sternotomy wires are in place no pneumothorax. No acute bony abnormality seen. No acute aortic findings suspected. IMPRESSION: Mild CHF/ volume overload pattern.
[2018-09-01] MEDS: FUROSEMIDE 40 MG/4 ML VIAL IV SCH (18:43)
[2018-09-01] MEDS: METOPROLOL TAR 50 MG TAB PO SCH (18:43)
[2018-09-01 21:04] LABS: Urine Appearance CLEAR; Urine Bilirubin NEGATIVE (NEG); Urine Blood NEGATIVE (NEG); Urine Color YELLOW; Urine Glucose NEGATIVE (NEG); Urine Protein NEGATIVE (NEG); Urine Specific Gravity 1.015 (1.005-1.030); Urine Urobilinogen 0.2 mg/dL (0.2-1.0)
[2018-09-01 21:22] LABS: Urine Microscopic Reflex NO UMIC
[2018-09-02] MEDS: ALPRAZOLAM 0.25 MG TABLET PO PRN ×2 (02:39→21:36)
[2018-09-02 05:26] LABS: Absolute Lymphocytes (CBC) 1.1 K/uL (0.7-4.9); Absolute Monocytes 0.8 K/uL (0.1-1.3); Absolute Neutrophil 4.9 K/uL (1.8-8.0); Basophils % 0.8 % (0-1.3); Eosinophils % 1.2 % (0-4.4); Hematocrit 38.5 % (39.6-49.0); Lymphocytes % 16.5 % (15.3-44.8); MCH 33.1 pg (27.0-35.0); MCV 97.8 fL (80-100); MPV 10.7 fL (7.6-11.3); Monocytes % 11.6 % (3.3-12.3); RBC Red Blood Cell Count 3.94 M/uL (4.33-5.43)
[2018-09-02 05:58] LABS: ALT/SGPT 58 U/L (12-78); AST/SGOT 27 U/L (15-37); Albumin 3.2 g/dL (3.4-5.0); Alkaline Phosphatase 65 U/L (45-117); BUN Blood Urea Nitrogen 17 mg/dL (7-18); Bicarbonate 31 mmol/L (21-32); Bilirubin Total 0.6 mg/dL (0.2-1.0); Glucose Level 102 mg/dL (74-106); NT PRO-BNP 2560 pg/mL (<450); Potassium 3.6 mmol/L (3.5-5.1); Protein, Total 6.1 g/dL (6.4-8.2); Sodium Level 141 mmol/L (136-145)
[2018-09-02] MEDS: METOPROLOL TAR 50 MG TAB PO SCH ×2 (06:03→20:16)
[2018-09-02] MEDS: PANTOPRAZOLE 40MG TABLET PO SCH (06:03)
[2018-09-02] MEDS ORDERED: POTASSIUM CL SA 10 MEQ TAB PO ONE (06:08)
--- NOTE | 2018-09-02 07:33 | RAD REPORT ---
EXAM DESCRIPTION: RAD - Chest Pa And Lat (2 Views) - 09/02/2018 6:34 am CLINICAL HISTORY: CHF COMPARISON: September 01 TECHNIQUE: PA and lateral views of the chest were obtained. FINDINGS: The lungs are slightly underinflated. Left pleural effusion and left base atelectasis are present. Right base atelectasis is present. Interstitial markings are prominent. Cardiomegaly remai ns. Vasculature is mildly prominent. No pneumothorax. IMPRESSION: Mild CHF/volume overload pattern showing a slight improvement from prior day imaging.
[2018-09-02] MEDS: FUROSEMIDE 40 MG/4 ML VIAL IV SCH ×2 (08:46→17:00)
[2018-09-02] MEDS: SACUBITRIL/VALSARTAN 24/26 MG TAB PO SCH ×2 (08:47→20:16)
--- NOTE | 2018-09-02 11:56 | P.PN ---
Subjective Date of Service: 09/02/18 Primary Care Provider: Dr Thomas Cardiology Chief Complaint: SOb Patient seen and examined at bedside with RN. Chart reviewed. Case discussed with cardiology at this time. Patient states that he feels much better than before. Does state however that he has not been able to sleep last night. Wants to rest this morning. Review of Systems 10-point ROS is otherwise unremarkable Physical Examination - Vital Signs Temperature: 97.3 F Blood Pressure: 115/80 Pulse: 110 Respirations: 22 Pulse Ox (%): 100 - Physical Exam General: Alert, Mild distress HEENT: Atraumatic, PERRLA, EOMI Neck: Supple, JVD not distended Respiratory: Normal air movement, Crackles/rales Cardiovascular: Regular rate/rhythm, Normal S1 S2 Gastrointestinal: Normal bowel sounds, No tenderness Musculoskeletal: No tenderness Integumentary: No rashes Neurological: Normal speech, Normal tone, Normal affect Lymphatics: No axilla or inguinal lymphadenopathy - Studies Laboratory Data (last 24 hrs) 09/01/18 14:25: PT 20.8 H, INR 1.75 09/01/18 14:25: WBC 7.2 D, Hgb 13.6, Hct 39.3 L, Plt Count 206 09/01/18 14:25: Sodium 141, Potassium 4.1, BUN 21 H, Creatinine 0.90, Glucose 121 H, Magnesium 2.2, Total Bilirubin 0.5, AST 32, ALT 68, Alkaline Phosphatase 72 Medications List Reviewed: Yes Assessment And Plan - Current Problems (Diagnosis) (1) SOB (shortness of breath) Onset Date: 08/29/18 Current Visit: No Status: Acute Plan: Dyspnea most likely secondary to CHF exacerbation -patient currently on oxygen will wean off as tolerated -treat underlying condition of CHF with IV Lasix at this time (2) CHF exacerbation Onset Date: 09/02/18 Current Visit: Yes Status: Acute Plan: Acute CHF exacerbation systolic. -last echocardiogram with ejection fraction of 35% with global hypokinesis. -patient with history of mitral valve replacement as well. -IV Lasix at this time. Started on Entresto by cardiology -cardiology consulted appreciate recommendation at this time -fluid restriction of 1.5 L Qualifiers: Heart failure type: combined systolic and diastolic Qualified Code(s): I50.43 - Acute on chronic combined systolic (congestive) and diastolic ( congestive) heart failure (3) Atrial fibrillation Onset Date: 09/02/18 Current Visit: Yes Status: Chronic Plan: Chronic AFib with RVR. Heart rate of 90s to 130s - on rate control and anticoagulation at this time Qualifiers: Atrial fibrillation type: chronic Qualified Code(s): I48.2 - Chronic atrial fibrillation (4) Hypertension Onset Date: 08/29/18 Current Visit: No Status: Chronic Plan: Restart home medication Qualifiers: Hypertension type: essential hypertension Qualified Code(s): I10 - Essential (primary) hypertension (5) AVILA (obstructive sleep apnea) Onset Date: 08/29/18 Current Visit: No Status: Chronic - Plan Pending clinical improvement at this time. Anticipate discharge in 24-48 hr once patient is reached his dry weight Discharge Plan: Home Plan to discharge in: 48 Hours - Code Status/Comfort Care Code Status Assessed: Yes Critical Care: No
[2018-09-02] MEDS: WARFARIN SODIUM 5 MG TAB PO SCH (17:13)
[2018-09-03 06:10] LABS: Absolute Lymphocytes (CBC) 1.1 K/uL (0.7-4.9); Absolute Neutrophil 5.6 K/uL (1.8-8.0); Basophils % 0.7 % (0-1.3); Eosinophils % 1.1 % (0-4.4); Hematocrit 38.5 % (39.6-49.0); Lymphocytes % 14.6 % (15.3-44.8); MCH 32.7 pg (27.0-35.0); MCV 96.4 fL (80-100); MPV 10.8 fL (7.6-11.3); Monocytes % 12.5 % (3.3-12.3); Protime INR 1.55
[2018-09-03] MEDS: METOPROLOL TAR 50 MG TAB PO SCH ×2 (06:17→17:42)
[2018-09-03 06:23] LABS: ALT/SGPT 40 U/L (12-78); AST/SGOT 16 U/L (15-37); Albumin 2.7 g/dL (3.4-5.0); Alkaline Phosphatase 60 U/L (45-117); BUN Blood Urea Nitrogen 16 mg/dL (7-18); Bicarbonate 34 mmol/L (21-32); Bilirubin Total 0.6 mg/dL (0.2-1.0); Glucose Level 87 mg/dL (74-106); Potassium 3.6 mmol/L (3.5-5.1); Protein, Total 5.4 g/dL (6.4-8.2); Sodium Level 140 mmol/L (136-145)
[2018-09-03 07:37] LABS: Phosphorus 3.1 mg/dL (2.5-4.9)
[2018-09-03] MEDS: PANTOPRAZOLE 40MG TABLET PO SCH (08:18)
[2018-09-03] MEDS: SACUBITRIL/VALSARTAN 24/26 MG TAB PO SCH ×2 (08:18→20:44)
[2018-09-03] MEDS ORDERED: WARFARIN SODIUM 2 MG TAB PO STA (08:36)
[2018-09-03] MEDS ORDERED: POTASSIUM CL SA 10 MEQ TAB PO ONE (09:00)
[2018-09-03 10:24] VITALS: BMI 29.0
[2018-09-03] MEDS: FUROSEMIDE 40 MG TABLET PO SCH (10:31)
--- NOTE | 2018-09-03 13:52 | CON ---
Mr. Hernandez has done well with diuresis. Yesterday, we started Entresto on him. We had to cut down the dose of metoprolol, but we still have managed to keep his heart rate in the 90s. He feels better . He still has some pulmonary crackles, so we are going to switch to oral Lasix, give 1 dose today, and tomorrow if he continues to be able to breath, not have paroxysmal nocturnal dyspnea or orthopnea , we will let him go home. 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 His INR was low today. We will give him an ex tra 2 mg of Coumadin today. Check the INR tomorrow. His outpatient dose may need to be something [facility] 6 mg. ADRIEN/ANA Voice ID: [id number] Report ID: [id number]
--- NOTE | 2018-09-03 15:20 | P.PN ---
Subjective Date of Service: 09/03/18 Primary Care Provider: Dr Thomas Cardiology Chief Complaint: SOb Patient seen and examined at bedside with RN. Chart reviewed. Case discussed with cardiology at this time. Patient states that he feels much better than before. Does state however that he has not been able to sleep last night due to orthopena. Review of Systems 10-point ROS is otherwise unremarkable Physical Examination - Vital Signs Temperature: 97.3 F Blood Pressure: 88/57 Pulse: 89 Respirations: 18 Pulse Ox (%): 98 - Physical Exam General: Alert, In no apparent distress HEENT: Atraumatic, PERRLA, EOMI Neck: Supple, JVD not distended Respiratory: Normal air movement, Crackles/rales Cardiovascular: Regular rate/rhythm, Normal S1 S2 Gastrointestinal: Normal bowel sounds, No tenderness Musculoskeletal: No tenderness Integumentary: No rashes Neurological: Normal speech, Normal tone, Normal affect Lymphatics: No axilla or inguinal lymphadenopathy - Studies Medications List Reviewed: Yes Assessment And Plan - Current Problems (Diagnosis) (1) SOB (shortness of breath) Onset Date: 08/29/18 Current Visit: No Status: Acute Plan: Dyspnea most likely secondary to CHF exacerbation -patient currently on oxygen will wean off as tolerated. -treat underlying condition of CHF with Lasix at this time (2) CHF exacerbation Onset Date: 09/02/18 Current Visit: Yes Status: Acute Plan: Acute CHF exacerbation systolic. -last echocardiogram with ejection fraction of 35% with global hypokinesis. -patient with history of mitral valve regurgitation as well. -On entresto At this time. Started on PO lasix. weight is increased to 191lbs today -cardiology consulted appreciate recommendation at this time -fluid restriction of 1.5 L Qualifiers: Heart failure type: combined systolic and diastolic Qualified Code(s): I50.43 - Acute on chronic combined systolic (congestive) and diastolic ( congestive) heart failure (3) Atrial fibrillation Onset Date: 09/02/18 Current Visit: Yes Status: Chronic Plan: Chronic AFib with RVR. Heart rate of 90s to 130s - Metoprolol -Coumadin 2mg 1 time dose and then increase to 6mg at home if INR therapeutic Qualifiers: Atrial fibrillation type: chronic Qualified Code(s): I48.2 - Chronic atrial fibrillation (4) Hypertension Onset Date: 08/29/18 Current Visit: No Status: Chronic Plan: Restart home medication Qualifiers: Hypertension type: essential hypertension Qualified Code(s): I10 - Essential (primary) hypertension (5) AVILA (obstructive sleep apnea) Onset Date: 08/29/18 Current Visit: No Status: Chronic - Plan Pending clinical improvement at this time. Anticipate discharge in 24-48 hr once patient is reached his dry weight Discharge Plan: Home Plan to discharge in: 48 Hours - Code Status/Comfort Care Code Status Assessed: Yes Critical Care: No
[2018-09-03] MEDS: WARFARIN SODIUM 5 MG TAB PO SCH (17:41)
[2018-09-03] MEDS: ALPRAZOLAM 0.25 MG TABLET PO PRN (23:44)
[2018-09-04 06:44] LABS: Absolute Lymphocytes (CBC) 1.4 K/uL (0.7-4.9); Absolute Monocytes 0.9 K/uL (0.1-1.3); Absolute Neutrophil 3.8 K/uL (1.8-8.0); Eosinophils % 1.5 % (0-4.4); Hematocrit 40.1 % (39.6-49.0); Lymphocytes % 21.8 % (15.3-44.8); MCH 32.7 pg (27.0-35.0); MCV 96.4 fL (80-100); MPV 10.8 fL (7.6-11.3); Monocytes % 14.7 % (3.3-12.3); RBC Red Blood Cell Count 4.16 M/uL (4.33-5.43)
[2018-09-04 06:55] LABS: Protime INR 1.76
[2018-09-04 06:59] LABS: ALT/SGPT 33 U/L (12-78); AST/SGOT 14 U/L (15-37); Albumin 2.8 g/dL (3.4-5.0); Alkaline Phosphatase 60 U/L (45-117); BUN Blood Urea Nitrogen 17 mg/dL (7-18); Bicarbonate 34 mmol/L (21-32); Bilirubin Total 0.6 mg/dL (0.2-1.0); Glucose Level 89 mg/dL (74-106); Potassium 3.7 mmol/L (3.5-5.1); Protein, Total 5.5 g/dL (6.4-8.2); Sodium Level 144 mmol/L (136-145)
[2018-09-04] MEDS: METOPROLOL TAR 50 MG TAB PO SCH (07:18)
[2018-09-04] MEDS: FUROSEMIDE 40 MG TABLET PO SCH (08:44)
[2018-09-04] MEDS: PANTOPRAZOLE 40MG TABLET PO SCH (08:44)
[2018-09-04] MEDS: SACUBITRIL/VALSARTAN 24/26 MG TAB PO SCH (08:45)
[2018-09-04] MEDS ORDERED: POTASSIUM CL SA 10 MEQ TAB PO ONE (09:00)
--- NOTE | 2018-09-04 12:10 | P.DS ---
Admission Date: 09/01/18 Discharge Date: 09/04/18 Primary Care Provider: Dr Thomas Cardiology Disposition: ROUTINE DISCHARGE Discharge Condition: GOOD Reason for Admission: SOb - Problems (1) SOB (shortness of breath) Onset Date: 08/29/18 Current Visit: No Status: Acute (2) CHF exacerbation Onset Date: 09/02/18 Current Visit: Yes Status: Acute Qualifiers: Heart failure type: combined systolic and diastolic Qualified Code(s): I50.43 - Acute on chronic combined systolic (congestive) and diastolic ( congestive) heart failure (3) Atrial fibrillation Onset Date: 09/02/18 Current Visit: Yes Status: Chronic Qualifiers: Atrial fibrillation type: chronic Qualified Code(s): I48.2 - Chronic atrial fibrillation (4) Hypertension Onset Date: 08/29/18 Current Visit: No Status: Chronic Qualifiers: Hypertension type: essential hypertension Qualified Code(s): I10 - Essential (primary) hypertension (5) AVILA (obstructive sleep apnea) Onset Date: 08/29/18 Current Visit: No Status: Chronic Brief History of Present Illness: This is a 88-year-old male with significant past medical history of AFib, CHF, by Bill regurg replacement, who presented to the ED complaining of having some shortness of breath. Patient stated that his shortness of breath has been chronic and has been going on for over a month scan progressively worse. Patient was recently admitted to the hospital for similar symptoms and was discharged home on medication after being diagnosed with severe congestive heart failure. The patient states that he was compliant with his medication however still started having some more shortness of breath and was not able to lay flat and thus decided to come to the ER. Patient states that he has not had any fever chills nausea vomiting or any other associated symptoms aside from shortness of breath. Patient states that he was going to be seen by Dr. Thomas tomorrow in his office at around 11 o'clock however he could not make that appointment as he came to the ER today. Patient stated that for last couple of days he has been having trouble laying flat and has to use 4-5 pillows every day to help him sleep at night time. Hospital Course: Overall during the hospital stay patient remained stable Patient was initially admitted to the hospital for progressive dyspnea and pedal edema. Most likely secondary to his worsening of CHF exacerbation secondary to global hypokinesis and cardiomyopathy. Patient was started on IV Lasix here in the hospital had marked improvement in his symptoms. Patient was switched over to Entresto by cardiology and again had marked improvement in his symptoms and thus was discharged home under stable condition. Patient was also given a prescription for warfarin that was changed to 6 mg as his INR was subtherapeutic while here in the hospital. Patient was educated extensively on disease process diet modification and fluid restriction at home. Patient demonstrated understanding and thus was discharged home under stable condition. Vital Signs/Physical Exam: Temp Pulse Resp BP Pulse Ox 97.7 F 117 H 20 116/80 98 09/04/18 08:00 09/04/18 08:44 09/04/18 08:00 09/04/18 08:44 09/04/18 08:00 General: Alert, In no apparent distress HEENT: Atraumatic, PERRLA, EOMI Neck: Supple, JVD not distended Respiratory: Clear to auscultation bilaterally, Normal air movement Cardiovascular: Regular rate/rhythm, Normal S1 S2 Gastrointestinal: Normal bowel sounds, No tenderness Musculoskeletal: No tenderness Integumentary: No rashes Neurological: Normal speech, Normal tone, Normal affect Lymphatics: No axilla or inguinal lymphadenopathy Laboratory Data at Discharge: WBC 6.3 K/uL (4.3-10.9) D 09/04/18 05:50 Hgb 13.6 g/dL (13.6-17.9) 09/04/18 05:50 Hct 40.1 % (39.6-49.0) 09/04/18 05:50 Plt Count 177 K/uL (152-406) 09/04/18 05:50 PT 20.9 SECONDS (9.5-12.5) H 09/04/18 05:50 INR 1.76 09/04/18 05:50 Sodium 144 mmol/L (136-145) 09/04/18 05:50 Potassium 3.7 mmol/L (3.5-5.1) 09/04/18 05:50 BUN 17 mg/dL (7-18) 09/04/18 05:50 Creatinine 0.70 mg/dL (0.55-1.3) 09/04/18 05:50 Glucose 89 mg/dL (74-106) 09/04/18 05:50 Phosphorus 3.1 mg/dL (2.5-4.9) 09/03/18 05:31 Magnesium 2.2 mg/dL (1.8-2.4) 09/01/18 14:25 Total Bilirubin 0.6 mg/dL (0.2-1.0) 09/04/18 05:50 AST 14 U/L (15-37) L 09/04/18 05:50 ALT 33 U/L (12-78) 09/04/18 05:50 Alkaline Phosphatase 60 U/L (45-117) 09/04/18 05:50 Home Medications: Alprazolam [Xanax] 0.125 mg PO BEDTIME PRN 08/26/18 Furosemide [Lasix*] 40 mg PO BIDL #60 tab 08/29/18 Metoprolol Tartrate [Lopressor*] 50 mg PO BID 6AM 6PM #60 tab 08/29/18 Pantoprazole [Protonix Tab*] 40 mg PO DAILYAC #30 tab 08/29/18 Doxylamine Succinate [Unisom] 12.5 mg PO BEDTIME PRN 09/01/18 Sacubitril/Valsartan [Entresto 24 mg-26 mg Tablet] 1 tab PO BID #60 tab Warfarin Sodium [Coumadin*] 6 mg PO DAILY 5 PM #30 tab 09/04/18 New Medications: Sacubitril/Valsartan [Entresto 24 mg-26 mg Tablet] 1 tab PO BID #60 tab Warfarin Sodium [Coumadin*] 6 mg PO DAILY 5 PM #30 tab Patient Discharge Instructions: Please follow up with cardiology in 1 week post discharge. New medication. Entresto 1 tab BID. Warfarin 6mg Daily now Diet: Regular Activity: Ad keyla Followup: Dante Thomas MD [ACTIVE - CAN ADMIT] - 1 Week
[2018-09-04 13:00] VITALS: BP 85/58; TEMP 97.1
[2018-09-04 13:17] VITALS: O2SAT 96
--- NOTE | 2018-09-04 15:47 | PN ---
Subjective: Mr. Hernandez seems to have improved. His INR is still subtherapeutic. I think his going home dose of Coumadin should be 6 mg. We should maintain him on Entresto, the lowest dose, twice a day; his other medications are just like they are, and I will see him in the office in about 10 days. I think he is stable enough to be discharged. 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 ADRIEN/ANA Voice ID: [id number] Report ID: [id number]
--- NOTE | 2018-09-05 10:45 | CON ---
CARDIOLOGY CONSULT History Of Present Illness: Mr. Hernandez is an 88-year-old man, came to the hospital with shortness of breath, was found to be in heart failure. Mr. Hernandez has mitral valve disease since the late . He underwent mitral valve repair for severe mitral regurgitation. It was causing heart failure. He did very well for 18 or 19 years following that. More recently he has re devoloped heart failure, and he had been evaluated for possible mitral valve repeat surgery. His ejection fraction was in the 50s as recently as 2 months ago, now it is in the low 30s. He presented to the hospital again last night with heart failure. The surgeons refused to reoperate him on his valve, he is considered inoperable for repeat MVR. He does not have diabetes. He has congestive heart failure from mitral regurgitation and depressed ejection fraction, paroxysmal atrial fibrillation. He is on Coumadin, metoprolol furosemide, alprazolam, Protonix. Allergies: HE IS ALLERGIC TO SULFA ANTIBIOTICS. Physical Examination: Vital Signs: 5 feet 8 inches, 158 pounds. HEENT: Normal. Lungs: Clear Heart: Regular rate and rhythm. There is a holosystolic murmur that is grade 2 /6. His EKG shows atrial fibrillation, but it is quite regular. Heart rate of 117 when he came in, but presently, his heart rate is in the 80s. Extremities: Mild edema noted more on the right than the left. Impression: Mr. Hernandez would probably benefit from being on Entresto. Just 3 months ago his ejection fraction normal. Since his LVEF is now markedly depressed we ill attempt to hilp him by adding entresto. He has been in the hospital as recently as a week ago with the same problems, so we need to try something different on Mr. Hernandez. ADRIEN/ANA Voice ID: [id number] Report ID: [id number] JOSÉ MIGUEL
== END 2018-09-04 15:08 | disposition home health service (06) | DRG 293 ==
LOC: ER 14:11 → ERHOLD 15:05 → 4TH 15:54
PROVIDERS: ADMIT Family Medicine; ATTEND Family Medicine
DX: I11.0 Hypertensive heart disease with heart failure (principal); I50.43 Acute on chronic combined systolic (congestive) and diastolic (congestive) heart failure; I34.0 Nonrheumatic mitral (valve) insufficiency; I48.0 Paroxysmal atrial fibrillation; Z79.01 Long term (current) use of anticoagulants; G47.33 Obstructive sleep apnea (adult) (pediatric); I42.9 Cardiomyopathy, unspecified; Z87.891 Personal history of nicotine dependence; H40.9 Unspecified glaucoma
CPT/HCPCS: 36415; 71045; 71046; 80048; 80053; 80076; 81003; 83735; 83880; 84100; 84484; 85025; 85610; 93005; 97163; 99284; J1650

== ENCOUNTER 2018-09-25 00:43 | Inpatient (IN) | payer OTHER ==
--- OUTSIDE RECORDS SUMMARY | 2018-09-25 00:46 | XMS REPORT | Clinical Summary ---
:1930 Author Organization [facility] Address [address] [place] [address] Care Team Providers Name Role Phone Laurent [...] cain Krishnamurthy MD regurgitation (Primary Dx) after 09/24/2017 Family History Medical History Relation Name Comments [...] procedure are in the results section. after 09/24/2017 Results Cardiac mri valve assessment w contrast (07/29/2018 4:43 PM) Narrative Performed At [facility] CMR Report Name: SEFERINO URIAS Debra :1930 [...] | Mild/Mod Hypo | 51-75% || Transmural SC| | Base Anterolateral | Mild/Mod Hypo | 1-25%|| Sub-Endo SC| | Mid Anterior | Mild/Mod Hypo | None ||| | Mid Anteroseptal | Mild/Mod Hypo | None ||| | Mid Inferoseptal | Mild/Mod Hypo | None ||| | Mid Inferior | Mild/Mod Hypo | None ||| | Mid Inferolateral| Severe Hypo | 26-50% || Sub-Endo SC| | Mid Anterolateral| Severe Hypo | 26-50% || Sub-Endo SC| | Apical Anterior| Mild/Mod Hypo | None ||| | Apical Septal| Mild/Mod Hypo | None ||| | Apical Inferior| Mild/Mod Hypo | None ||| | Apical Lateral | Mild/Mod Hypo | None ||| | [place] | Mild/Mod Hypo | None ||| + [...] SCAN INFO GENERAL CONTRAST AGENT TYPE:[employer] LOT NUMBER:[id number] EXPIRATION DATE:2019-04-22 00:00:00 VOLUME ADMINISTERED:25 ml DOSAGE [...] MD TECHNOLOGIST:Amira White RT BILLING Patient Account [id number] CPT Codes 87235, 63317, 98041 ICD10 Codes I34.0, R93.1 ADDITIONAL NOTES AOFF [...] Mild/Mod Hypo | 51-75% | | Transmural SC | | Base Anterolateral | Mild/Mod Hypo | 1-25% | | Sub-Endo SC | | Mid Anterior | Mild/Mod Hypo | None | | | | Mid Anteroseptal | Mild/Mod Hypo | None | | | | Mid Inferoseptal | Mild/Mod Hypo | None | | | | Mid Inferior | Mild/Mod Hypo | None | | | | Mid Inferolateral | Severe Hypo | 26-50% | | Sub-Endo SC | | Mid Anterolateral | Severe Hypo | 26-50% | | Sub-Endo SC | | Apical Anterior | Mild/Mod Hypo | None | | | | Apical Septal | Mild/Mod Hypo | None | | | | Apical Inferior | Mild/Mod Hypo | None | | | | Apical Lateral | Mild/Mod Hypo | None | | | | [place] | Mild/Mod Hypo | None | | [...] GENERAL CONTRAST AGENT TYPE: [employer] LOT NUMBER: [id number] EXPIRATION DATE: 2019-04-22 00:00:00 VOLUME ADMINISTERED: 25 [...] TECHNOLOGIST: Amira White RT BILLING Patient Account [id number] CPT Codes 54678, 81837, 05840 ICD10 Codes I34.0, R93.1 ADDITIONAL NOTES AOFF 76, 59 CORRECTED PAFF 81 CORRECTED IS SAME AR DIRECT BY STJ 27 ML CORRECTED ARRF=27/59=46% LVOT 79 MR=86 - 59=27 MRRF=27/ (86- AR 27)=43% TR=PRESENT BUT NOT QUANTIFIED PAFF 81 HIGHER THAN RVSV Report generated by Pre[employer], a product of [employer] Performing Organization Address City/State/[facility] Phone Number [facility] [id number] [place] [address] Estimated GFR (07/29/2018 2:45 PM) GFR Non Af Amer >90 mL/min/1.[address] [facility] DEPARTMENT OF PATHOLOGY AND GENOMIC MEDICINE GFR Af Amer >90 mL/min/1.[address] [facility] DEPARTMENT OF Comment: PATHOLOGY AND GENOMIC [...] and Americans. Specimen Blood Performing Organization Address City/State/[facility] Phone Number [facility] DEPARTMENT OF PATHOLOGY AND [address] [place] [phone] GENOMIC MEDICINE POC panel (07/29/2018 2:45 PM) POC creatinine 0.6 (L) 0.7 - 1.2 mg/dl [facility] DEPARTMENT OF PATHOLOGY AND GENOMIC MEDICINE POC hematocrit 47 41 - 51 % [facility] DEPARTMENT OF PATHOLOGY Comment: AND GENOMIC MEDICINE Meter ID: [id number] Scrap Collector: Eliseo Nj Performing Organization Address City/[facility] Phone Number [facility] DEPARTMENT OF PATHOLOGY AND [address] [place] [id number] GENOMIC MEDICINE after 09/24/2017 Insurance Payer Benefit Plan / Group Subscriber ID Type Phone Address MEDICARE MEDICARE PART A AND B xxxxxxxxxx Medicare [place], [place] AETNA AETNA PPO OPEN CHOICE xxxxx PPO Home: 119 [phone] [address]
[2018-09-25 01:14] LABS: Protime INR 1.79
[2018-09-25] MEDS ORDERED: ALBUTEROL 2.5 MG/3 ML NEB SOL ONE (01:22)
[2018-09-25] MEDS ORDERED: IPRATROPIUM BROM 0.5MG/2.5ML ONE (01:22)
[2018-09-25] MEDS ORDERED: FUROSEMIDE 40 MG/4 ML VIAL ONE (01:23)
[2018-09-25 01:27] LABS: Arterial Blood Carboxyhemoglob 1.1 % (0-1.5); Blood Gas Oxyhemoglobin 93.5 % (94-97); Blood O2 Saturation 95.2 % (92-98.5)
[2018-09-25 01:27] LABS: ALT/SGPT 26 U/L (12-78); AST/SGOT 22 U/L (15-37); Albumin 3.4 g/dL (3.4-5.0); Alkaline Phosphatase 68 U/L (45-117); BUN Blood Urea Nitrogen 33 mg/dL (7-18); Bicarbonate 31 mmol/L (21-32); Bilirubin Direct 0.4 mg/dL (0-0.2); Bilirubin Total 0.7 mg/dL (0.2-1.0); Glucose Level 98 mg/dL (74-106); Magnesium 2.2 mg/dL (1.8-2.4); NT PRO-BNP 1103 pg/mL (<450); Potassium 4.6 mmol/L (3.5-5.1); Protein, Total 6.5 g/dL (6.4-8.2); Sodium Level 140 mmol/L (136-145); Troponin (Emerg Dept Use Only) < 0.02 ng/mL (0.0-0.045)
--- NOTE | 2018-09-25 01:50 | ER ---
Nurse's Notes [facility] Name: Seferino Hernandez Age: 88 yrs Sex: Male : 1930 Arrival Date: 09/25/2018 Time: 00:44 Bed 2 Private MD: Diagnosis: Congestive heart failure. Pedal edema Presentation: 09/25 00:50 Presenting complaint: EMS states: Called to pt's home, pt complaining of SOB that ea resolved before EMS arrived. Upon arrival pt sating at 94% RA, no adventitious breath sounds noted per EMS. Transition of care: patient was not received from another setting of care. Onset of symptoms was September 25, 2018. Risk Assessment: Do you want to hurt yourself or someone else? Patient reports no desire to harm self or others. Initial Sepsis Screen: Does the patient meet any 2 criteria? HR > 90 bpm. Yes Does the patient have a suspected source of infection? No. Patient's initial sepsis screen is negative. Care prior to arrival: None. 00:50 Method Of Arrival: EMS: [facility] ea 00:50 Acuity: [place]YS[place] 3 ea Triage Assessment: 01:07 General: Appears in no apparent distress. Behavior is calm, cooperative, appropriate ea for age. Pain: Denies pain. Neuro: Level of Consciousness is awake, alert, obeys commands, Oriented to person, place, time, situation. Respiratory: Airway is patent Respiratory effort is even, unlabored, Respiratory pattern is regular, symmetrical. GI: No signs and/or symptoms were reported involving the gastrointestinal system. Derm: Skin is pink, warm \T\ dry. Historical: - Allergies: 01:07 Sulfa (Sulfonamide Antibiotics); ea - Home Meds: 01:07 alprazolam 0.25 mg Oral tab 1 tab as needed [Active]; doxylamine-pyridoxine Oral once ea daily [Active]; metoprolol tartrate 50 mg Oral tab 1 tab 2 times per day [Active]; warfarin 2 mg oral tab 1 tab once daily [Active]; furosemide 40 mg Oral tab 1 tab once daily [Active]; pantoprazole 40 mg Oral TbEC 1 tab once daily [Active]; amiodarone 200 mg Oral tab 2 tabs once daily [Active]; Entresto 24-26 mg oral tab daily [Active]; - PMHx: 01:07 mitral valve repair; Hypertension; Atrial Fib; ea - Immunization history:: Adult Immunizations up to date. - Social history:: Smoking status: Patient/guardian denies using tobacco. - Ebola Screening: : No symptoms or risks identified at this time. Screenin:03 Abuse screen: Denies threats or abuse. Nutritional screening: No deficits noted. ea Tuberculosis screening: No symptoms or risk factors identified. Fall Risk None identified. Assessment: 01:00 General: Appears in no apparent distress. comfortable, Behavior is calm, cooperative. rr5 Pain: Denies pain. Neuro: No deficits noted. Level of Consciousness is awake, alert, obeys commands, Oriented to person, place, time, situation. Cardiovascular: Capillary refill < 3 seconds Rhythm is atrial fibrillation. Respiratory: Airway is patent Respiratory effort is even, unlabored, Respiratory pattern is regular, symmetrical. GI: No signs and/or symptoms were reported involving the gastrointestinal system. : No signs and/or symptoms were reported regarding the genitourinary system. EENT: No signs and/or symptoms were reported regarding the EENT system. Derm: Skin is intact, is healthy with good turgor, bilateral edema lower extremities Skin is dry, Skin is pink, warm \T\ dry. Musculoskeletal: No signs and/or symptoms reported regarding the musculoskeletal system. 02:19 Reassessment: Patient appears in no apparent distress at this time. Patient states rr5 feeling better. Patient states symptoms have improved. Vital Signs: 00:50 BP 94 / 64; Pulse 106; Resp 20; Temp 97.8; Pulse Ox 97% on R/A; Weight 88 kg; Height 5 ea ft. 8 in. (172.72 cm); Pain 0/10; 01:00 BP 96 / 69; Pulse 118; Resp 25; Temp 97.7(O); Pulse Ox 99% on Nebulizer Mask; rr5 01:52 BP 93 / 67; Pulse 118; Resp 25; Pulse Ox 96% on R/A; rr5 02:18 BP 98 / 67; Pulse 117; Resp 26; Pulse Ox 96% on R/A; rr5 03:26 BP 106 / 86; Pulse 111; Resp 26; Pulse Ox 96% on R/A; rr5 00:50 Body Mass Index 29.50 (88.00 kg, 172.72 cm) ea ED Course: 00:44 Patient arrived in ED. al2 00:46 Baldemar Vasquez MD is Attending Physician. pkl 00:50 Toña Dyson, NIKIA is Primary Nurse. ea 00:50 Patient has correct armband on for positive identification. Bed in low position. Call ea light in reach. Side rails up X2. 00:50 Arm band placed on right wrist. Patient placed in an exam room, on a stretcher, on ea cardiac rehab nurse, on pulse oximetry. 01:01 Triage completed. ea 01:02 lunchroom monitor on. Pulse ox on. NIBP on. rr5 01:29 X-ray completed. Portable x-ray completed in exam room. Patient tolerated procedure mh1 well. 01:48 Ludwin Hernandez MD is Hospitalizing Provider. pkl 01:50 Inserted saline lock: 20 gauge in left antecubital area, using aseptic technique. rr5 ,using aseptic technique. by lurdes MONTEJO Blood collected. 03:25 No provider procedures requiring assistance completed. Patient admitted, IV remains in rr5 place. intact. Administered Medications: 01:40 Drug: Albuterol - atroVENT (3:1) (2.5 mg - 0.5 mg) 3 ml Route: Nebulizer; rr5 03:11 Follow up: Response: No adverse reaction rr5 01:50 Drug: Lasix 20 mg {Note: BP96/69.} Route: IVP; Site: left antecubital; rr5 03:10 Follow up: Response: No adverse reaction rr5 01:53 CANCELLED (Other Intervention Used): Lasix 40 mg IVP once rr5 Intake: 01:32 post lasix rr5 Output: 01:32 Urine: 180ml (Voided); Total: 180ml. rr5 01:32 post lasix rr5 Outcome: 01:49 Decision to Hospitalize by Provider. pkl 03:25 Admitted to Med/surg accompanied by nurse, family with patient, via stretcher, Report rr5 called to NIKIA mcdermott 03:25 Condition: stable 03:25 Instructed on the need for admit, Demonstrated understanding of instructions. 03:53 Patient left the ED. ea Signatures: Baldemar Vasquez MD MD pkl Jaquelin Gamino 1 Toña Dyson, Rozina Recinos RN, ea oh2 Ildefonso Martinez RN RN rr5 Corrections: (The following items were deleted from the chart) 01:53 01:50 BP 96 / 69; Pulse 118bpm; Resp 25bpm; Pulse Ox 99% Nebulizer Mask; Temp 97.7F rr5 Oral; rr5
--- NOTE | 2018-09-25 01:50 | EDPHYS ---
Physician Documentation [facility] Name: Seferino Hernandez Age: 88 yrs Sex: Male : 1930 Arrival Date: 09/25/2018 Time: 00:44 Bed 2 Private MD: ED Physician Baldemar Vasquez HPI: 09/25 01:06 This 88 yrs old Male presents to ER via EMS with unknown complaint. pkl 01:06 The patient has shortness of breath at rest. Onset: The symptoms/episode began/occurred pkl today, 2 month(s) ago, and became worse. Associated signs and symptoms: Pertinent positives: non-productive cough. Historical: - Allergies: 01:07 Sulfa (Sulfonamide Antibiotics); ea - Home Meds: 01:07 alprazolam 0.25 mg Oral tab 1 tab as needed [Active]; doxylamine-pyridoxine Oral once ea daily [Active]; metoprolol tartrate 50 mg Oral tab 1 tab 2 times per day [Active]; warfarin 2 mg oral tab 1 tab once daily [Active]; furosemide 40 mg Oral tab 1 tab once daily [Active]; pantoprazole 40 mg Oral TbEC 1 tab once daily [Active]; amiodarone 200 mg Oral tab 2 tabs once daily [Active]; Entresto 24-26 mg oral tab daily [Active]; - PMHx: 01:07 mitral valve repair; Hypertension; Atrial Fib; ea - Immunization history:: Adult Immunizations up to date. - Social history:: Smoking status: Patient/guardian denies using tobacco. - Ebola Screening: : No symptoms or risks identified at this time. ROS: 01:06 Eyes: Negative for injury, pain, redness, and discharge, ENT: Negative for injury, pkl pain, and discharge, Neck: Negative for injury, pain, and swelling, Cardiovascular: Negative for chest pain, palpitations, and edema. 01:06 Respiratory: Positive for cough, shortness of breath. 01:06 Abdomen/GI: Negative for abdominal pain, nausea, vomiting, and diarrhea. 01:06 Back: Negative for acute changes. 01:06 : Negative for urinary symptoms. 01:06 MS/extremity: Positive for swelling, of the both legs. 01:06 Skin: Negative for rash. 01:06 Neuro: Negative for altered mental status. Exam: 01:06 Head/Face: Normocephalic, atraumatic. Eyes: Pupils equal round and reactive to light, pkl extra-ocular motions intact. Lids and lashes normal. Conjunctiva and sclera are non-icteric and not injected. Cornea within normal limits. Periorbital areas with no swelling, redness, or edema. ENT: Nares patent. No nasal discharge, no septal abnormalities noted. Tympanic membranes are normal and external auditory canals are clear. Oropharynx with no redness, swelling, or masses, exudates, or evidence of obstruction, uvula midline. Mucous membranes moist. Neck: Trachea midline, no thyromegaly or masses palpated, and no cervical lymphadenopathy. Supple, full range of motion without nuchal rigidity, or vertebral point tenderness. No Meningismus. Chest/axilla: Normal chest wall appearance and motion. Nontender with no deformity. No lesions are appreciated. 01:06 Cardiovascular: Rate: tachycardic, actual rate is 106 bpm, Rhythm: irregularly irregular. 01:06 ECG was reviewed by the Attending Physician. 01:06 Respiratory: the patient does not display signs of respiratory distress, Respirations: normal, Breath sounds: rales, that are mild, are scattered. 01:06 Abdomen/GI: Bowel sounds: normal, Palpation: abdomen is soft and non-tender. 01:06 Back: Exam negative for acute changes. 01:06 : Exam negative for acute changes. 01:06 Musculoskeletal/extremity: Extremities: grossly normal except: noted in the both legs: swelling. 01:06 Skin: Exam negative for rash. 01:06 Neuro: Orientation: is normal, Mentation: is normal, Cranial nerves: grossly normal, Motor: is normal. Vital Signs: 00:50 BP 94 / 64; Pulse 106; Resp 20; Temp 97.8; Pulse Ox 97% on R/A; Weight 88 kg; Height 5 ea ft. 8 in. (172.72 cm); Pain 0/10; 01:00 BP 96 / 69; Pulse 118; Resp 25; Temp 97.7(O); Pulse Ox 99% on Nebulizer Mask; rr5 01:52 BP 93 / 67; Pulse 118; Resp 25; Pulse Ox 96% on R/A; rr5 02:18 BP 98 / 67; Pulse 117; Resp 26; Pulse Ox 96% on R/A; rr5 03:26 BP 106 / 86; Pulse 111; Resp 26; Pulse Ox 96% on R/A; rr5 00:50 Body Mass Index 29.50 (88.00 kg, 172.72 cm) ea MDM: 00:46 Patient medically screened. pkl 01:48 Data reviewed: vital signs, nurses notes, lab test result(s), EKG, radiologic studies, pkl plain films. 09/25 01:00 Order name: Basic Metabolic Panel pkl 09/25 01:00 Order name: CBC with Diff pkl 09/25 01:00 Order name: LFT's pkl 09/25 01:00 Order name: Magnesium pkl 09/25 01:00 Order name: NT PRO-BNP pkl 09/25 01:00 Order name: PT-INR pkl 09/25 01:00 Order name: Troponin (emerg Dept Use Only) pkl 09/25 01:00 Order name: ABG pkl 09/25 01:00 Order name: D-Dimer pkl 09/25 01:31 Order name: ABG Arterial Blood Gas; Complete Time: 01:46 EDMS 09/25 01:10 Order name: CBC with Automated Diff; Complete Time: 01:10 EDMS 09/25 01:17 Order name: Protime (+INR); Complete Time: 01:18 EDMS 09/25 01:17 Order name: D-Dimer; Complete Time: 01:18 EDMS 09/25 01:27 Order name: Basic Metabolic Panel; Complete Time: 01:41 EDMS 09/25 01:00 Order name: XRAY Chest (1 view) pk 09/25 01:00 Order name: EKG; Complete Time: 01:01 pkl 09/25 01:00 Order name: Cardiac monitoring; Complete Time: 01:09 pkl 09/25 01:00 Order name: EKG - Nurse/Tech; Complete Time: 01:09 pkl 09/25 01:00 Order name: IV Saline Lock; Complete Time: :54 pkl 09/25 01:00 Order name: Labs collected and sent; Complete Time: 01:54 pkl 09/25 01:00 Order name: O2 Per Protocol; Complete Time: 01:54 pkl 09/25 01:27 Order name: Liver (Hepatic) Function; Complete Time: 01:41 EDMS 09/25 01:27 Order name: Troponin (Emerg Dept Use Only); Complete Time: 01:41 EDOK 09/25 01:27 Order name: NT PRO-BNP; Complete Time: :41 EDMS 09/25 01:27 Order name: Magnesium; Complete Time: 01:41 EDMS 09/25 01:31 Order name: Urine Dipstick--Ancillary (enter results) 2 09/25 03:23 Order name: Urine Dipstick-Ancillary; Complete Time: 04:10 EDOK 09/25 01:00 Order name: O2 Sat Monitoring; Complete Time: 01:54 pkl Administered Medications: 01:40 Drug: Albuterol - atroVENT (3:1) (2.5 mg - 0.5 mg) 3 ml Route: Nebulizer; rr5 03:11 Follow up: Response: No adverse reaction rr5 01:50 Drug: Lasix 20 mg {Note: BP96/69.} Route: IVP; Site: left antecubital; rr5 03:10 Follow up: Response: No adverse reaction rr5 01:53 CANCELLED (Other Intervention Used): Lasix 40 mg IVP once rr5 Disposition: 09/25/18 01:49 Hospitalization ordered by Ludwin Hernandez for Observation. Preliminary diagnosis is Congestive heart failure. Pedal edema. - Bed requested for Telemetry/MedSurg (observation). - Status is Observation. ea - Condition is Stable. - Problem is new. - Symptoms have improved. UTI on Admission? No Signatures: Dispatcher [employer] [facility] Dimple Diaz RN RN kl Lam, Pin, MD MD pkToña Hernandez RN RN ea Roque, Raymond, RN RN rr5 Corrections: (The following items were deleted from the chart) 01:53 01:01 Lasix 40 mg IVP once ordered. pkl rr5 03:05 01:49 Hospitalization Ordered by Ludwin Hernandez MD for Observation. Preliminary kl diagnosis is Congestive heart failure. Pedal edema. Bed requested for Telemetry/MedSurg (observation). Status is Observation. Condition is Stable. Problem is new. Symptoms have improved. UTI on Admission? No. pkl 03:53 03:05 09/25/2018 01:49 Hospitalization Ordered by Ludwin Hernandez MD for Observation. ea Preliminary diagnosis is Congestive heart failure. Pedal edema. Bed requested for Telemetry/MedSurg (observation). Status is Observation. Condition is Stable. Problem is new. Symptoms have improved. UTI on Admission? No. kl
[2018-09-25 02:08] LABS: Absolute Lymphocytes (CBC) 1.2 K/uL (0.7-4.9); Absolute Monocytes 0.6 K/uL (0.1-1.3); Absolute Neutrophil 4.3 K/uL (1.8-8.0); Basophils % 1.4 % (0-1.3); Eosinophils % 0.8 % (0-4.4); Hematocrit 43.7 % (39.6-49.0); Lymphocytes % 18.8 % (15.3-44.8); MCH 31.7 pg (27.0-35.0); MCV 95.8 fL (80-100); MPV 11.3 fL (7.6-11.3); RBC Red Blood Cell Count 4.56 M/uL (4.33-5.43)
[2018-09-25] MEDS ORDERED: ONDANSETRON 4 MG/2 ML VIAL IV PRN (03:20)
[2018-09-25 03:23] LABS: Urine Blood NEGATIVE (NEG); Urine Glucose NEGATIVE (NEG); Urine Protein 1+ (NEG); Urine Specific Gravity 1.025 (1.005-1.030); Urine pH 5.5 (5.0-7.0)
[2018-09-25 03:49] VITALS: BMI 28.4
--- NOTE | 2018-09-25 03:49 | P.HP ---
Certification for Inpatient Patient admitted to: Observation With expected LOS: <2 Midnights Practitioner: I am a practitioner with admitting privileges, knowledge of patient current condition, hospital course, and medical plan of care. Services: Services provided to patient in accordance with Admission requirements found in Title 42 Section 412.3 of the Code of Federal Regulations Patient History Date of Service: 09/25/18 Reason for admission: Acute on chronic combined systolic and diastolic CHF History of Present Illness: Mr Hernandez is an 88-year-old male with history of mitral but replacement 1997, chronic atrial fibrillation, hypertension, who was admitted to the hospital about 1 month ago due to CHF exacerbation. At that time he had a new echocardiogram which shows severe decrease of his EF 35-40% with global hypokinesis, and moderate to severe mitral regurgitation. He also had left heart catheterization showing normal coronary arteries. Due to the results, the patient was not recommended to have a new valve replacement, instated or that, he was started on Entresto. He also was placed on amiodarone for his atrial fibrillation. The patient has chronic shortness of breath, specially when he lay flat on the bed, but last night shortness of breath got worse and decided to come to ER for evaluation. He denied any chest pain. He has lower extremity swelling but no more than usual. Chest-x-ray remarkable for cardiomegaly, venous congestion, and left pleural effusion, she is increasing compared with the last chest x-ray. Allergies Sulfa (Sulfonamide Antibiotics) Allergy (Verified 07/15/18 11:10) Unknown Home medications list reviewed: Yes Home Medications: Alprazolam [Xanax] 0.125 mg PO BEDTIME PRN 08/26/18 Furosemide [Lasix*] 40 mg PO BIDL #60 tab 08/29/18 Metoprolol Tartrate [Lopressor*] 50 mg PO BID 6AM 6PM #60 tab 08/29/18 Pantoprazole [Protonix Tab*] 40 mg PO DAILYAC #30 tab 08/29/18 Doxylamine Succinate [Unisom] 12.5 mg PO BEDTIME PRN 09/01/18 Sacubitril/Valsartan [Entresto 24 mg-26 mg Tablet] 1 tab PO BID #60 tab Warfarin Sodium [Coumadin*] 6 mg PO DAILY 5 PM #30 tab 09/04/18 - Past Medical/Surgical History Diabetic: No -: Hypertension -: Diastolic CHF -: History of Mitral valve repair -: Obstructive sleep apnea -: Glaucoma -: Former tobacco use -: Mitral valve repair 19 years ago -: Hernia repair -: Cholecystectomy -: Cataract surgery Psychosocial/ Personal History: The patient is a . He has 6 children. He is retired. - Family History Mother -: Heart disease Father -: Stroke Brother -: Heart disease, Hypertension - Social History Smoking Status: Former smoker Alcohol use: Yes CD- Drugs: No Caffeine use: Yes Place of Residence: Home Review of Systems 10-point ROS is otherwise unremarkable Physical Examination - Physical Exam General: Alert, In no apparent distress HEENT: Atraumatic, PERRLA, Mucous membr. moist/pink, EOMI, Sclerae nonicteric Neck: Supple, 2+ carotid pulse no bruit, No LAD, Without JVD or thyroid abnormality Respiratory: Diminished (Bibasilar), Crackles/rales (Bilateral rales) Cardiovascular: Normal S1 S2, Irregular heart rate/rhythm Gastrointestinal: Normal bowel sounds, No tenderness Musculoskeletal: No tenderness Integumentary: No rashes Neurological: Normal speech, Normal strength at 5/5 x4 extr, Normal tone, Normal affect Lymphatics: No axilla or inguinal lymphadenopathy - Studies Laboratory Data (last 24 hrs) 09/25/18 01:50 FOOD PREP WORKER: WBC 6.3, Hgb 14.4, Hct 43.7, Plt Count 195 Assessment and Plan - Problems (Diagnosis) (1) Acute on chronic combined systolic and diastolic ACC/AHA stage C congestive heart failure Current Visit: Yes Status: Acute (2) Moderate to severe mitral regurgitation Current Visit: Yes Status: Acute (3) Atrial fibrillation Onset Date: 09/02/18 Current Visit: No Status: Chronic Qualifiers: Atrial fibrillation type: chronic Qualified Code(s): I48.2 - Chronic atrial fibrillation - Plan The patient will be admitted to the hospital due to acute on chronic combined diastolic and systolic CHF he was treated in ER with low-dose of IV Lasix, improving his symptoms. He also has left pleural effusion which was likely secondary to CHF. Will continue IV Lasix, resume his home medication as soon are verified. Consult belt brander team for medication adjustment. - Advance Directives Does patient have a Living Will: Yes Does patient have a Durable POA for Healthcare: Yes - Code Status/Comfort Care Code Status Assessed: Yes Code Status: Full Code
[2018-09-25] MEDS ORDERED: FUROSEMIDE 40 MG/4 ML VIAL IV ONE (06:00)
--- NOTE | 2018-09-25 06:06 | EKG ---
Test Date: 2018-09-25 Test Time: 00:47:14 Boat Garnisher: MEASUREMENT RESULTS: Intervals: Rate: 106 OK: QRSD: 106 QT: 382 QTc: 507 [place]: P: OK: QRS: -35 T: 100 INTERPRETIVE STATEMENTS: Atrial fibrillation with rapid ventricular response Left axis deviation Low voltage QRS Cannot rule out Anterior infarct, age undetermined Abnormal ECG Compared to ECG 09/01/2018 14:31:05 no significant change from previous ECG Electronically Signed On 09-25-18 06:05:51 HINGING MACHINE OPERATOR by Dante Thomas
--- NOTE | 2018-09-25 08:37 | RAD REPORT ---
EXAM DESCRIPTION: RAD - Chest Single View - 09/25/2018 1:31 am CLINICAL HISTORY: Shortness of breath, history of prior mitral valve repair COMPARISON: September 02 TECHNIQUE: AP portable chest image was obtained 0125 hours . FINDINGS: Large left pleural effusion is present increased over the comparison study. Small right pl eural effusion is present also suspected to have increased. Cardiac silhouette is partially obscured. Cardiomegaly is evident. Upper lobe vasculature is not outside of normal range for portable examinat ion. Upper left lung field interstitial markings are similar to comparison. Right lung markings also similar to comparison with no focal consolidation. No pneumothorax. No acute aortic findings suspecte d. IMPRESSION: Large left pleural effusion increased from the prior examination. Small right pleural effusion also suspected to be increased. Cardiomegaly similar to prior imaging.
[2018-09-25] MEDS ORDERED: DOXYLAMINE SUCCINATE 12.5 MG PO PRN (10:02)
[2018-09-25] MEDS: SACUBITRIL/VALSARTAN 24/26 MG TAB PO SCH (14:32)
--- NOTE | 2018-09-25 16:56 | CON ---
CARDIOLOGY CONSULT An 88-year-old man. Reason For Cardiology Consult: Atrial fib and mitral regurgitation. History Of Present Illness: Mr. Hernandez recently went through a cardiac cath and evaluation by surge ons in [place]. They refused to operate on his mitral valve. In the year close to 1999, he had a mi tral valve repair, mitral annular ring. He did well for a long time, then started developing mitral regurg. He was evaluated for a MitraClip or repeat MVR and the surgeons on both teams declined. He has not gone to seek surgery from anywhere else, but in the meantime, his ejection fraction has deter iorated. He is in chronic atrial fibrillation, anticoagulated with Coumadin, came to the hospital wi th worsening shortness of breath and his x-rays look like he has a left pleural effusion that is incr easing in size. Medications: Outpatient medications have been metoprolol 50 b.i.d., alprazolam, furosemide 40 b.i.d. , Unisom, Coumadin 2 mg per day, Protonix 40 mg per day, amiodarone 200 b.i.d., and Entresto. We do not have an INR back yet on him. His x-ray really looks like more than half his lung is involv ed with pleural effusion. I would recommend we stop warfarin and attempt to tap it. We will ask Dr. Terry for his opinion on this effusion. It is possible the patient would benefit from a thoracos copic examination at the same time. The fluid may be very thick and a needle may not do it, but it i s accumulating rapidly. I think we need to get rid of his effusion for him to have any chance of latisha athing well. Physical Examination: Vital Signs: 5 feet 8 inches, 187 pounds. Blood pressure 97/72, temperature 97.2, heart rate 115. Lungs: Do not reveal wheezes. There are fine crackles almost everywhere. There are absent breath s ounds in most of the left lung. Heart: Irregularly irregular. It was going just about 100 beats per minute when I listened to him. Abdomen: Soft. Extremities: 2 to 3+ edema. Recommendation: I think the patient could stand a little more diuresis. Low blood pressure is going to be a factor in this. I think we should hold the Coumadin and see if we can tap some of the fluid away. He might need pleurodesis. It is very likely to come back given that the etiology is probabl y severe mitral regurgitation. Thank you very much for your kind referral of Mr. Hernandez. I will follow him with you. MASOOD Voice ID: [id number] Report ID: [id number]
[2018-09-25] MEDS ORDERED: WARFARIN SODIUM 2 MG TAB PO SCH (17:00)
[2018-09-25] MEDS: METOPROLOL TAR 50 MG TAB PO SCH (18:00)
--- NOTE | 2018-09-25 19:47 | PN ---
Date of Progress Note: 09/25/2018 Subjective: Patient seen and examined. Chart reviewed and case discussed with RN and Dr. Thomas. Patient states that his breathing is somewhat better, however, still having some dyspnea upon exertion. Review of Systems: Negative except as above. Medications: List reviewed. Code Status: Full code. Physical Examination: Vital Signs: Temperature 97.6, heart rate 107, blood pressure 95/74, respirations 18, O2 is 95% on room air. General: Awake, alert, oriented x3, in some mild distress. Elderly male. CV: S1, S2. Irregularly irregular. Peripheral pulses present. No murmurs. Respiratory: Diminished breath sounds at the bases and crackles heard. No wheezing or stridor. Gastrointestinal: Abdomen is soft, nontender, nondistended. Positive bowel sounds. Extremities: No clubbing, cyanosis. The patient does have 3+ pedal edema up to the shins bilaterally. Neurologic: Nonfocal. Laboratory Data: WBC 6.3, H and H are 14.4 and 43.7, platelets 195. ABG; pH 7.43, pCO2 of 39, pO2 of 78, bicarb 25. Chest x-ray, personally reviewed, shows large left pleural effusion, increased from prior examination on September 02, small right pleural effusion also suspected to be increased. Assessment And Plan: An 88-year-old male with: 1. Acute on chronic combined systolic and diastolic heart failure. Patient will be continued on congestive heart failure guidelines. We will monitor I's and O's strictly, daily weights, fluid-restricted diet. Appreciate Dr. Thomas' input. 2. Large left pleural effusion and moderate right pleural effusion. Dr. Thomas recommends thoracentesis. We will check INR, reversed if needed and try to schedule for tomorrow morning. We will discuss with Dr. Terry regarding for thoracentesis. Consult Pulmonology. 3. Marked severe mitral regurgitation. 4. Atrial fibrillation, chronic with controlled ventricular rate. The patient is on Coumadin. We will hold Coumadin for now due to possible procedure in a.m. Continue rate control. 5. Essential hypertension, stable. Resume home medications. 6. Obstructive sleep apnea. 7. Glaucoma. 8. Gastrointestinal and deep venous thrombosis prophylaxis addressed. Plan: Change status to the patient. Consult Pulmonology, likely will need ultrasound-guided thoracentesis by Interventional Radiology. Length of stay greater than 2 midnights. NIDHI Voice ID: [id number] Report ID: [id number] JOSÉ MIGUEL
[2018-09-25] MEDS: ALPRAZOLAM 0.25 MG TABLET PO PRN (20:37)
[2018-09-25] MEDS: AMIODARONE HCL 200 MG TAB PO SCH (20:37)
[2018-09-26] MEDS: PANTOPRAZOLE 40MG TABLET PO SCH (06:01)
[2018-09-26] MEDS: METOPROLOL TAR 50 MG TAB PO SCH ×2 (06:01→18:54)
[2018-09-26] MEDS: SACUBITRIL/VALSARTAN 24/26 MG TAB PO SCH (08:51)
[2018-09-26] MEDS: AMIODARONE HCL 200 MG TAB PO SCH ×2 (08:51→20:42)
[2018-09-26 10:27] LABS: Albumin 3.2 g/dL (3.4-5.0); Bilirubin Total 1.3 mg/dL (0.2-1.0); Potassium 3.9 mmol/L (3.5-5.1)
--- NOTE | 2018-09-26 12:34 | RAD REPORT ---
EXAM DESCRIPTION: RAD - Chest Lateral Decubitus - 09/26/2018 12:22 pm CLINICAL HISTORY: Pleural effussion COMPARISON: Chest Single View dated 09/25/2018 FINDINGS: Right side down decubitus view shows small layering right pleural effusion measuring 16 mm in maximum depth. [id number] decubitus view shows [id number] layering pleural effusion cierra suring maximally 4 cm in depth.
--- NOTE | 2018-09-26 12:43 | RAD REPORT ---
EXAM DESCRIPTION: CT - Thorax Wo Con CLINICAL HISTORY: Chest pain pleural effusion COMPARISON: Chest Single View dated 09/25/2018; Chest Pa And Lat (2 Views) dated 09/02/2018 FINDINGS: Areas of atelectasis are present in both posterior lung bases. Small right and small to mo derate left pleural effusion is evident. No pneumothorax. Prominent cardiomegaly is seen. No pericardial fluid. Postsurgical changes of sternotomy noted. No aggressive bone lesion. No worrisome upper abdominal fin ding. Cholecystectomy clips. All CT scans are performed using dose optimization technique as appropriate and may include automated exposure control or mA/KV adjustment according to patient size. IMPRESSION: Small right and small to moderate left pleural effusion noted with areas of atelectasis suspected in both posterior lung bases. Significant cardiomegaly.
[2018-09-26] MEDS: FUROSEMIDE 40 MG/4 ML VIAL IV SCH (14:10)
--- NOTE | 2018-09-26 14:12 | PN ---
His heart rate has slowed down some. He is not getting Coumadin as we anticipate we may want to do a thoracentesis. We will get a CAT scan without contrast. I believe he is now fully admitted to the hospital, not in an observation state that is certainly what I think is best for him and we will try to figure out what we can do to help Mr. Hernandez breathe a little better. He is very aware of the fa ct that his disease process is end-stage at age 88, but I told him to at least consider going through the thoracentesis to go home and feel better for an unknown length of time. We will consider a scle rosing process at the same time the thoracentesis is done. He remains in AFib and we do not know wha t his INR is yet, it has not been drawn and run yet today. MASOOD Voice ID: [id number] Report ID: [id number]
--- NOTE | 2018-09-26 14:24 | P.PN ---
Subjective Date of Service: 09/26/18 Chief Complaint: Acute on chronic combined systolic and diastolic CHF Patient seen and examined at bedside. Daughter at bedside. Case discussed with nursing staff and Dr. Terry. Patient reports improved breathing though still having small noted dyspnea on exertion. Review of Systems As noted Physical Examination - Vital Signs Temperature: 96.9 F Blood Pressure: 110/80 Pulse: 103 Respirations: 20 Pulse Ox (%): 96 - Physical Exam General: Alert, In no apparent distress, Oriented x3 HEENT: Atraumatic, PERRLA, EOMI Neck: Supple, JVD not distended Respiratory: Diminished (Especially in bases bilaterally), Crackles/rales Cardiovascular: Normal S1 S2, Irregular heart rate/rhythm (irregularly irregular ) Gastrointestinal: Normal bowel sounds, No tenderness Musculoskeletal: Other (2+ pitting edema up to shins bilaterally) Integumentary: No rashes Neurological: Normal speech, Normal tone, Normal affect Assessment And Plan - Plan An 88-year-old male with: - Acute on chronic combined systolic and diastolic heart failure. Continue congestive heart failure guidelines. We will monitor I's and O's strictly, daily weights, fluid-restricted diet. Appreciate Dr. Thomas' input. - Large left pleural effusion and moderate right pleural effusion. Pulmonology consulted. Dr. Terry, recommendations appreciated. Bilateral lateral decubitus imaging ordered, pending. Will discuss with Dr. Terry regarding thoracocentesis. INR pending, hold Coumadin for potential procedure. - Marked severe mitral regurgitation. - Atrial fibrillation, chronic with controlled ventricular rate. The patient is on Coumadin. We will hold Coumadin for now due to possible procedure in a.m. Continue rate control. - Essential hypertension, stable. Resume home medications. - Obstructive sleep apnea. - Glaucoma. DVT prophylaxis: [facility], for potential procedure. Diet: Heart healthy. NPO after midnight for potential procedure. Plan: Pending potential ultrasound-guided thoracentesis by Interventional Radiology. Physician Review: Patient Assessed, Agree with Above Assessment and Plan Time Spent Managing PTS Care (In Minutes): 35
[2018-09-26 18:00] LABS: Urine Appearance CLEAR; Urine Bilirubin NEGATIVE (NEG); Urine Blood NEGATIVE (NEG); Urine Color YELLOW; Urine Glucose NEGATIVE (NEG); Urine Protein NEGATIVE (NEG)
[2018-09-26 18:10] LABS: Urine Microscopic Reflex NO UMIC
[2018-09-26] MEDS: ALPRAZOLAM 0.25 MG TABLET PO PRN (20:49)
[2018-09-27] MEDS: METOPROLOL TAR 50 MG TAB PO SCH (05:24)
[2018-09-27 05:57] LABS: Protime INR 1.49
[2018-09-27] MEDS: PANTOPRAZOLE 40MG TABLET PO SCH (07:30)
[2018-09-27 08:50] VITALS: TEMP 97.4
[2018-09-27] MEDS: AMIODARONE HCL 200 MG TAB PO SCH (09:11)
[2018-09-27] MEDS: SACUBITRIL/VALSARTAN 24/26 MG TAB PO SCH (09:11)
[2018-09-27] MEDS: FUROSEMIDE 40 MG/4 ML VIAL IV SCH (10:15)
[2018-09-27 10:21] VITALS: BP 101/70
--- NOTE | 2018-09-27 12:26 | P.DS ---
Admission Date: 09/25/18 Discharge Date: 09/27/18 Primary Care Provider: Dr. Avitia Disposition: ROUTINE DISCHARGE Discharge Condition: GOOD Reason for Admission: Acute on chronic combined systolic and diastolic CHF Consultations: Cardiology Brief History of Present Illness: Mr Hernandez is an 88-year-old male with history of mitral but replacement 1997, chronic atrial fibrillation, hypertension, who was admitted to the hospital about 1 month ago due to CHF exacerbation. At that time he had a new echocardiogram which shows severe decrease of his EF 35-40% with global hypokinesis, and moderate to severe mitral regurgitation. He also had left heart catheterization showing normal coronary arteries. Due to the results, the patient was not recommended to have a new valve replacement, instated or that, he was started on Entresto. He also was placed on amiodarone for his atrial fibrillation. The patient has chronic shortness of breath, specially when he lay flat on the bed, but last night shortness of breath got worse and decided to come to ER for evaluation. He denied any chest pain. He has lower extremity swelling but no more than usual. Chest-x-ray remarkable for cardiomegaly, venous congestion, and left pleural effusion, she is increasing compared with the last chest x-ray. Hospital Course: Patient was admitted to the hospital for acute on chronic combined diastolic and systolic CHF. He was given IV Lasix in the ER, which helped improve his symptoms. Cardiology was consulted. He was found to have bilateral pleural effusions likely secondary to CHF. Pulmonology was consulted for possible thoracocentesis for bilateral lateral decubitus foot imaging was ordered with which showed a right-sided pleural effusion, 16mm and a left-sided effusion of about 4 cm in depth. Clinically, patient improved with his symptoms of shortness of breath resolving therefore thoracocentesis was not done at this time. At the time of discharge, patient was breathing well on room air without any respiratory distress, and he denied any symptoms and reported his lower extremity swelling had improved extensively. For his history of atrial fibrillation, he is rate controlled with beta-mal and on anticoagulation with Coumadin. His Coumadin was held for potential procedure thoracocentesis. Once decided that the procedure would be done, Coumadin was restarted. INR was subtherapeutic. Patient was instructed to follow up with primary care physician for an INR a trauma to make sure Coumadin dosage is therapeutic. No changes in beta-mal dosage or committed dosage at discharge. He remained stable, from his Hypertension point of view. No changes to blood pressure medications at discharge. He was discharged with instructions to follow up with primary care in 1 week and his him tech and 2 weeks. Patient verbalized understanding of all instructions directions, and therefore was considered safe discharge home. Vital Signs/Physical Exam: Temp Pulse Resp BP Pulse Ox 97.4 F 101 H 16 101/70 94 09/27/18 08:00 09/27/18 10:15 09/27/18 08:00 09/27/18 10:15 09/27/18 08:00 General: Alert, In no apparent distress, Oriented x3 HEENT: Atraumatic, PERRLA, EOMI Neck: Supple, JVD not distended Respiratory: Clear to auscultation bilaterally, Normal air movement Cardiovascular: Regular rate/rhythm, Normal S1 S2, Edema (1+ pitting edema bilaterally, improved from admission.) Gastrointestinal: Normal bowel sounds, No tenderness Musculoskeletal: No tenderness Integumentary: No rashes Neurological: Normal speech, Normal tone, Normal affect Laboratory Data at Discharge: WBC 6.3 K/uL (4.3-10.9) 09/25/18 01:50 [employer] Hgb 14.4 g/dL (13.6-17.9) 09/25/18 01:50 [employer] Hct 43.7 % (39.6-49.0) 09/25/18 01:50 [employer] Plt Count 195 K/uL (152-406) 09/25/18 01:50 [employer] PT 17.7 SECONDS (9.5-12.5) H 09/27/18 05:01 INR 1.49 09/27/18 05:01 Sodium 140 mmol/L (136-145) 09/26/18 09:56 Potassium 3.9 mmol/L (3.5-5.1) 09/26/18 09:56 BUN 24 mg/dL (7-18) H 09/26/18 09:56 Creatinine 1.20 mg/dL (0.55-1.3) 09/26/18 09:56 Glucose 118 mg/dL (74-106) H 09/26/18 09:56 Total Bilirubin 1.3 mg/dL (0.2-1.0) H 09/26/18 09:56 AST 18 U/L (15-37) 09/26/18 09:56 ALT 22 U/L (12-78) 09/26/18 09:56 Alkaline Phosphatase 61 U/L (45-117) 09/26/18 09:56 Home Medications: RX: Alprazolam [Xanax] 0.125 mg PO BEDTIME PRN 08/26/18 RX: Furosemide [Lasix*] 40 mg PO BIDL #60 tab 08/29/18 RX: Metoprolol Tartrate [Lopressor*] 50 mg PO BID 6AM 6PM #60 tab 08/29/18 RX: Doxylamine Succinate [Unisom] 12.5 mg PO BEDTIME PRN 09/01/18 RX: Amiodarone HCl [Cordarone*] 200 mg PO BID 09/25/18 RX: Pantoprazole Sodium [Protonix] 40 mg PO DAILY 09/25/18 RX: Sacubitril/Valsartan [Entresto 24 mg-26 mg Tablet] 1 tab PO DAILY 09/25/18 RX: Warfarin Sodium [Coumadin*] 2 mg PO DAILY 5 PM 09/25/18 Patient Discharge Instructions: Please follow up with primary care physician in 1 week. Please follow up with the him tech in 2 weeks. Diet: Fluid restriction Activity: Ad keyla Time spent managing pt's care (in minutes): 55
--- NOTE | 2018-09-27 13:28 | PN ---
Date of Progress Note: 09/27/2018 Additional Admitting Physician: Dr. Murillo. Mr. Hernandez is admitted to Dr. Murillo's service on 09/25/2018. He was seen by Dr. Thomas on 8 and 09/26/2018. Yesterday, he underwent a CT without contrast for a pleural effusion. The plan wa s initially for possible thoracentesis and pleurodesis at the same time. The effusion apparently was not large enough. Coumadin has been held. He is in chronic atrial fibrillation with controlled res ponse. He is feeling better. According to the patient, the plan is to continue diuresis. No thorac entesis is planned at this point. He is feeling better. We will continue to follow him as needed. KEVIN/ANA Voice ID: [id number] Report ID: [id number]
[2018-09-27 14:34] VITALS: O2SAT 95
[2018-09-27] MEDS ORDERED: WARFARIN SODIUM 2 MG TAB PO SCH (17:00)
== END 2018-09-27 14:07 | disposition home health service (06) | DRG 293 ==
LOC: ER 00:43 → ERHOLD 01:51 → OBSVTOIN 01:51 → INTOOBSV 01:51 → 2ND 03:17 → OBSVTOIN 14:25
PROVIDERS: ADMIT Internal Medicine; ATTEND Family Medicine
DX: I11.0 Hypertensive heart disease with heart failure (principal); I50.43 Acute on chronic combined systolic (congestive) and diastolic (congestive) heart failure; Z95.2 Presence of prosthetic heart valve; I48.2 Chronic atrial fibrillation; Z79.01 Long term (current) use of anticoagulants; Z88.2 Allergy status to sulfonamides; Z87.891 Personal history of nicotine dependence; I34.0 Nonrheumatic mitral (valve) insufficiency; G47.33 Obstructive sleep apnea (adult) (pediatric); H40.9 Unspecified glaucoma
CPT/HCPCS: 36415; 71045; 71046; 71250; 80048; 80053; 80076; 81003; 82805; 83735; 83880; 84484; 85025; 85379; 85610; 93005; 94640; 94760; 96374; 99285; J1940